=== PATIENT | male | born 1970 | race Caucasian/White ===

== ENCOUNTER 2020-08-26 15:07 | Inpatient (IN) | payer MEDICARE, SELFPAY ==
[2020-08-26] VITALS (9 sets, daily range): BP systolic 113–153; BP diastolic 82–105; PULSE 90–104; RESP 22–26; TEMP 36.2–36.7; O2SAT 88–100; BMI 29.6
--- NOTE | ~2020-08-26 | CT_ITS ---
EXAMINATION: CT diagnostic chest wo con DATE: 08/27/2020 10:02 INDICATION: pneumothorax TECHNIQUE: Computed tomography (CT) of the chest was performed without intravenous contrast. Addition al 3D reconstructions utilizing coronal maximum intensity projection (MIP) were performed. Automated exposure control and iterative reconstruction technique were employed. The dose-length product was 49 8.19 mGy-cm. COMPARISON: None FINDINGS: Right chest tube within the pleural space of the right upper lung zone with tip near the apex. There is a small residual right pneumothorax most prominent at the anterior lung base. There is a large wendi unt of soft tissue gas at the right chest wall extending into the neck and superior mediastinum. Keisha re bullous emphysema in the bilateral upper lobes with negligible emphysema throughout the remainder of the lungs. Consolidation most prominent in the right upper lobe less dense patchy groundglass opac ities and smaller regions of consolidation in the right middle and lower lobes. Mild discoid atelecta sis at the lingula. Small calcified nodules in the left lower lobe consistent with old granulomatous disease. Very small right pleural effusion. Heart size is normal. Very small pericardial effusion. Th oracic aorta is normal in caliber. No pathologically enlarged thoracic lymphadenopathy. Chronic T11-L 1 compression fractures with one third anterior vertebral body height loss at L1 and progressively le ss anterior vertebral body height loss at T12 and T11. IMPRESSION: 1. Small residual right hydropneumothorax with tiny pleural effusion component and with chest tube ti p at the right apex. 2. Emphysema with severe bullous changes at the bilateral apices but otherwise minimal through the re mainder of the lungs. 3. Consolidation in the right upper lobe with less dense airspace disease in the right middle and low er lobes most consistent with pneumonia. Differential includes less likely asymmetric pulmonary edema . 4. Prominent right-sided chest wall gas which extends into the neck and superior mediastinum likely r elated to chest tube placement. Reviewed, dictated and finalized at location A. VITIES DIRECTOR SCOUTING IMPRESSION: 1. Small residual right hydropneumothorax with tiny pleural effusion component and with chest tube tip at the right apex. 2. Emphysema with severe bullous changes at the bilateral apices but otherwise minimal through the remainder of the lungs. 3. Consolidation in the right upper lobe with less dense airspace disease in th e right middle and lower lobes most consistent with pneumonia. Differential inc ludes less likely asymmetric pulmonary edema. 4. Prominent right-sided chest wall gas which extends into the neck and superio r mediastinum likely related to chest tube placement.
--- NOTE | ~2020-08-26 | XR_ITS ---
EXAMINATION: XR chest-chest tube insert/pos DATE: 08/26/2020 17:23 INDICATION: Chest tube placement for right pneumothorax TECHNIQUE: frontal view of the chest was obtained. COMPARISON: Chest radiograph dated 08/26/2020 at 4:07 PM FINDINGS: Interval placement of an apically directed right chest tube with reexpansion of the right lung. Very small residual pneumothorax at the apex and mediastinal side of the right upper lung zone. Prominent bullous changes at the bilateral upper lung zones particularly on the left consistent with severe emp hysema. Linear opacities in the bilateral mid and lower lung zones most likely discoid atelectasis. R ight heart border remains obscured suggesting atelectasis and/or pneumonia in the right middle lobe. No pleural effusion or left-sided pneumothorax. Cardiac mediastinal silhouette is within normal limit s for AP technique with normal heart size and no evident midline shift. Expected right-sided chest wa ll gas related to chest tube placement. IMPRESSION: 1. Improved aeration of the previously collapsed right lung with very small residual pneumothorax in the right upper lung zone post right chest tube placement. 2. Severe upper lung predominant emphysema. 3. Persistent opacities at the medial right lower lung zone with obscuration of the right heart borde r consistent with likely residual atelectasis and/or pneumonia in the right middle lobe. Reviewed, dictated and finalized at location A. ST FIREFIGHTER IMPRESSION: 1. Improved aeration of the previously collapsed right lung with very small res idual pneumothorax in the right upper lung zone post right chest tube placement . 2. Severe upper lung predominant emphysema. 3. Persistent opacities at the medial right lower lung zone with obscuration of the right heart border consistent with likely residual atelectasis and/or pneu monia in the right middle lobe.
--- NOTE | ~2020-08-26 | XR_ITS ---
EXAMINATION: XR chest 1V portable EXAM DATE: 08/26/2020 16:15 INDICATION: Shortness of breath. History high blood pressure and COPD. TECHNIQUE: Frontal and lateral projections of the chest obtained and reviewed. Comparison is made to prior examination from 08/10/2014. FINDINGS: There is large right-sided pneumothorax or hydropneumothorax. There is large left apical b leb which is unchanged compared to 2015. Cardiomediastinal silhouette is normal. The left pleural eff usion. There are no osseous abnormalities identified. IMPRESSION: Large right-sided pneumothorax or hydropneumothorax. I discussed pneumothorax with Dr. Cheng Girard MD at 08/26/2020 16:23 HAIR BOILER OPERATOR. Reviewed, dictated and finalized at location A. BOILER OPERATOR IMPRESSION: Large right-sided pneumothorax or hydropneumothorax. I discussed pneumothorax with Dr. Cheng Girard MD at 08/26/2020 16:23 Zaid.
--- NOTE | ~2020-08-26 | XR_ITS ---
EXAMINATION: XR chest 1V portable INDICATION: Pneumothorax, shortness of breath TECHNIQUE: Portable AP chest at 08/26/2020 COMPARISON: 08/26/2020 FINDINGS: A right-sided chest tube is in expected position. No persistent pneumothorax is identified. A moderate amount of subcutaneous emphysema is present in the right chest wall which tracks into the neck bilaterally. There are airspace opacities in the right midlung zone. Severe emphysema is noted in the left mid and upper lung zones. No pleural effusion is identified. The cardiomediastinal silhou ette is normal. IMPRESSION: 1. Right chest tube in expected position without residual pneumothorax identified. 2. Moderate amount of subcutaneous emphysema in the right chest wall and neck. 3. Airspace opacities in the right midlung zone, likely atelectasis. Reviewed, dictated and finalized at location A. HETIC CLOTH BINDING CUTTER IMPRESSION: 1. Right chest tube in expected position without residual pneumothorax identifi ed. 2. Moderate amount of subcutaneous emphysema in the right chest wall and neck. 3. Airspace opacities in the right midlung zone, likely atelectasis.
--- NOTE | ~2020-08-26 | XR_ITS ---
XR chest 1V portable DATE: 08/27/2020 09:09 INDICATION: Right pneumothorax TECHNIQUE: Portable upright AP chest on August 27, 2020 at 0909 hours COMPARISON: August 27, 2020 portable AP chest at 0538 hours August 26, 2020 portable AP chest August 10, 2014 2 view chest FINDINGS: Right thoracostomy tube is unchanged in position. Slight residual right apical pneumothorax is suggested. There is extensive infiltrate throughout most of the right lung, sparing bullae at the right apex. Severe bullous change of the left upper lung. There is extensive increased subcutaneous emphysema of the right chest wall, extending into both cerv ical areas. IMPRESSION: Right chest tube Minimal right apical pneumothorax is increased subcutaneous emphysema Diffuse right-sided pulmonary infiltrate Severe bullous emphysema Reviewed, dictated and finalized at location B. CAR UNLOADER
--- NOTE | 2020-08-26 15:09 | ECG_ITS ---
Measurements Intervals [place] Rate: 97 P: 98 WV: 116 QRS: 61 QRSD: 96 T: 60 QT: 326 QTc: 415 Interpretive Statements SINUS RHYTHM WITH SHORT [place] INTERVAL BASELINE WANDER- II, III, AVR, AVL, AVF, V1-V6 BORDERLINE ECG Electronically Signed On 08-26-2020 15:40:11 CLIENT TECHNICAL PROFESSIONAL by Stas Adams D.O.
[2020-08-26 15:30] LABS: Basophils Percent Auto 0.4 % (0.2-1.2); Eosinophils Absolute Auto 0.2 K/mm3 (0-0.3); Eosinophils Percent Auto 1.8 % (0-4.4); Hematocrit 49.6 % (42.0-52.0); Hemoglobin 16.1 g/dL (14.0-18.0); Immature Granulocyte Absolute 0.01 K/mm3 (0.00-0.031); Immature Granulocyte Percent A 0.1 % (0-0.5); Lymphocytes Absolute Auto 1.56 K/mm3 (0.9-3.2); Mean Corpuscular HGB Conc 32.5 g/dl (32-36); Mean Corpuscular Hemoglobin 31.3 pg (26-34); Mean Corpuscular Volume 96.3 fl (80-100); Mean Platelet Volume 9.5 fl (7.4-10.4); Monocytes Absolute Auto 0.8 K/mm3 (0.1-0.6); Monocytes Percent Auto 9.4 % (2.6-8.5); Neutrophils Absolute Auto 5.7 K/mm3 (1.3-6.7); Neutrophils Percent Auto 69.3 % (45.5-73.1); Platelet Count Result 324 k/mm3 (150-375); Red Blood Count 5.15 M/mm3 (4.6-6.20); Red Cell Distribution Width 13.1 % (11.5-14.5); White Blood Count 8.2 K/mm3 (4.5-10.0)
[2020-08-26 15:41] LABS: Anion Gap 8 mmol/L (8-16); Blood Urea Nitrogen 12 mg/dL (9-20); Calcium 9.1 mg/dL (8.4-10.2); Carbon Dioxide 34 mmol/L (22-30); Chloride 95 mmol/L (98-107); Estimated CRCL calculation 108 ml/min; Estimated Glomerular Filt Rate > 60; Glucose 134 mg/dL (75-110); Potassium 4.3 mmol/L (3.4-5.0); Sodium 137 mmol/L (137-145)
[2020-08-26 15:42] LABS: Lactic Acid Reflex 1.3 mmol/L (0.7-2.1)
[2020-08-26 15:48] LABS: Alveolar/Arterial O2 Gradient 75.6 mmHg; Base Excess ABG 2.6 mEq/l (+/-2.0); Carboxyhemoglobin 1.6 % THb (0-2.0); Fractional Inspired Oxygen 28 %; HCO3 ABG 28.2 mEq/l (22.0-26.0); Methemoglobin ABG 0.2 %THb (0-1.5); Oxygen Content ABG 20.7 %vol (16.0-22.0); Oxygen Saturation ABG 93.7 % (95.0-100.0); Oxyhemoglobin 92.2 % THb (90.0-100.0); PCO2 ABG 46.7 mmHg (35.0-45.0); PO2 ABG 68.9 mmHg (80.0-100.0); PO2 FiO2 Ratio Arterial Blood 2.46 %; pH ABG 7.399 (7.350-7.450)
[2020-08-26 15:49] LABS: Device NASAL CANNULA; Modified Allen's Test Pass; Site Drawn RIGHT RADIAL
[2020-08-26] MEDS: IPRATROPIUM BR 0.02% INH SOLN 0.5 MG/2.5 ML VIAL 1.5 MG INHALATION (15:56)
[2020-08-26] MEDS: ALBUTEROL SULFATE NEB 2.5 MG/0.5 ML INH 15 MG INHALATION (15:56)
--- NOTE | 2020-08-26 16:18 | PC.NURSE ---
Called lab to add on BNP
--- NOTE | 2020-08-26 16:26 | ED.SOB ---
HPI - SOB/Dyspnea General Chief Complaint: Shortness of Breath/Dyspnea Stated Complaint: SOB, I think I have pneumonia Time Seen by Provider: 08/26/20 15:18 History of Present Illness HPI Narrative: Patient is a 49-year-old male who presents the ER with shortness of breath. Report is been ongoing for 1 week. Associate with some mild chest pain a week ago that is not particular bugging him at this time. Reports he becomes increasingly short of breath with any type of exertion. Concerned he may have pneumonia. He has not been having fevers or chills or sweats. No productive cough. O2 sats low upon arrival to ER. Related Data Home Medications Medication Instructions Recorded Confirmed No Home Medications 08/26/20 08/26/20 Allergies Allergy/AdvReac Type Severity Reaction Status Date / Time No Known Allergies Allergy Unknown Unverified 08/03/14 17:18 Review of Systems Review of Systems: All systems reviewed & are unremarkable except as noted in HPI and below Constitutional: Constitutional: Denies chills, Reports fatigue and Denies fever(s) ENT: Denies nasal congestion and Denies sore throat Cardiovascular: Cardiovascular: Reports chest pain, Denies rapid heart rate and Denies radiating jaw, neck or arm pain Respiratory: Respiratory: Denies cough, Reports dyspnea and Denies wheezing Gastrointestinal: Gastrointestinal: Denies abdominal pain, Denies nausea and Denies vomiting PMFSH Past Medical History Medical History (Updated 08/26/20 @ 20:41 by Cheng Girard MD) COPD (chronic obstructive pulmonary disease) Surgical History Surgical History (Updated 08/26/20 @ 17:40 by Cheng Girard MD) H/O brain surgery plates and screws from traumatic injury History of tracheostomy Family History Family History (Updated 08/26/20 @ 20:30 by Unique Whitehead RN) Father Hypertension Sibling Hypertension Grandparent Diabetes mellitus Grandparent Acute myocardial infarction Other Family history of mental disorder Social History Social History Smoking packs per day: 0.5 Smoking cigarettes per day: 10.0 Years smoked: 30 Smoking pack-years: 15.00 Smoking status: Current every day smoker Alcohol intake: current Substance use: current Substance use type: marijuana Last use: 08/21 Gender identity (if verbalized by the patient): Male Spiritual care concerns: No Exam Narrative: Exam Narrative: GENERAL: Uncomfortable-appearing, well-nourished, and in mild distress. HEAD: Normocephalic, atraumatic. ENT: Mucous membranes moist. CHEST: Exceedingly diminished lung sounds throughout with poor air movement and rapid breathing. HEART: Regular rate and rhythm. Normal peripheral pulses. ABDOMEN: Soft, nontender, nondistended. EXTREMITIES: Normal range of motion. No edema. SKIN: Warm, dry, no rash. NEURO: Alert and oriented x3. PSYCH: Normal mood and affect. Course Course Emergency Course: Patient with improved lung sounds on the right after chest tube placement. Admit to general surgery service. Vital Signs Vital signs: Vital Signs Temperature 97.2 F L 08/26/20 15:15 Pulse Rate 95 08/26/20 15:15 Respiratory Rate 25 H 08/26/20 15:15 Blood Pressure 135/105 H 08/26/20 15:15 Pulse Oximetry 88 L 08/26/20 15:15 Temperature 97.2 F L 08/26/20 15:15 Pulse Rate 94 08/26/20 18:32 Respiratory Rate 24 H 08/26/20 18:32 Blood Pressure 125/82 08/26/20 18:32 Pulse Oximetry 96 08/26/20 18:32 Procedures Chest Tube Chest Tube 1: Chest Tube Date: 08/26/20 Chest Tube Time: 17:10 Chest Tube Location: right, mid axillary line and fourth interspace Tube Type: quik thal Chest Tube Prep: Yes betadine prep (cholorhexadine) Anesthetic: lidocaine 1% and with epi Amount of anesthesia used (mL): 10 Incision Made With: #10 blade Procedure: seldinger technique Post Procedure: sutured to skin, steril
[2020-08-26 16:41] LABS: NT Pro B Type Natriuretic Pept 275 PG/ML (5-100)
[2020-08-26] MEDS: MORPHINE SULFATE (*CRX) 4 MG/ML INJ IV PUSH ×3 (17:02→21:24)
--- NOTE | 2020-08-26 17:02 | PC.NURSE ---
EDP at bedside at this time for chest tube placement. 4mg morphine given prior to procedure. Consent obtained.
--- NOTE | 2020-08-26 20:05 | ADMGEN ---
This patient, Skyler Stroud, was admitted to Medical Room 340-01. Patient/family oriented to hospital policies and general routines including ID bracelet, bed and alarms, visiting hours, pain management, procedures, bathroom and other care routines, personal items, smoking policy, room service/diet, and visiting hours. Information on how to activate the Rapid Response Team has been discussed. Patient/Family are encouraged to report perceived risks to care and to ask questions if they do not understand what they are told or what they should do.
--- NOTE | 2020-08-26 20:35 | PC.NURSE ---
Upon pt arrival to room from ED this RN noted chest tube to be clamped. Unclamped chest tube and spoke with charge nurse about this and the ED nurse that patient had been received from. Then called Dr. Petty and received orders to connect chest tube to wall suction at 20 and to repeat chest xray in AM. Will put in orders.
[2020-08-27] VITALS (21 sets, daily range): BP systolic 118–140; BP diastolic 73–92; PULSE 85–110; RESP 18–28; TEMP 36–36.4; O2SAT 90–100
[2020-08-27] MEDS: MORPHINE SULFATE (*CRX) 4 MG/ML INJ IV PUSH ×2 (04:41→13:30)
--- NOTE | 2020-08-27 07:59 | PC.NURSE ---
Patient called nurse's station via call light to notify RN that he was feeling short of breath. RN arrived to assess patient and noted his O2 sats were in the mid 80's. Oxygen increased to 4L NC. VS obtained: patient is tachycardic, O2 sats increased to 92% on 4L, otherwise stable. Patient was kneeling at the bedside; denied any type of fall or unintentional descent. Patient states he has been finding relief of symptoms associated to SOB at home for several weeks by utilizing this position. Patient stated he felt warm and requested a fan. Dr. Petty notified.
--- NOTE | 2020-08-27 09:16 | PM.IMCN ---
Assessment and Plan Assessment and plan (1) Acute respiratory failure: Code(s): J96.00 - Acute respiratory failure, unspecified whether with hypoxia or hypercapnia Status: Acute (2) Pneumothorax: Code(s): J93.9 - Pneumothorax, unspecified Status: Acute (3) Chronic bullous emphysema: Code(s): J43.9 - Emphysema, unspecified Status: Acute (4) COPD (chronic obstructive pulmonary disease): Code(s): J44.9 - Chronic obstructive pulmonary disease, unspecified Status: Acute (5) Traumatic brain injury: Code(s): S06.9X9A - Unspecified intracranial injury with loss of consciousness of unspecified duration, initial encounter Status: Acute (6) Tobacco abuse: Code(s): Z72.0 - Tobacco use Status: Acute (7) DVT prophylaxis: Code(s): Z29.9 - Encounter for prophylactic measures, unspecified Status: Acute Additional Plan Called to the bedside by RN to find the patient in respiratory distress. Stat repeat chest x-ray ordered showing minimal right apical pneumothorax with increased subcutaneous emphysema. He had diffuse right-sided pulmonary infiltrates. General surgery called to the bedside as well. CT of the chest ordered hydropneumothorax and tiny pleural effusion with chest tube at right apex. Consolidation right upper lobe with less dense airspace disease in right middle and lower lobes consistent with pneumonia but consider asymmetric pulmonary edema. Prominent right-sided chest wall gas which extends into the neck and superior mediastinum. Patient remained afebrile. White count was normal on admission. Cough is minimal. He was given 1 dose of IV Lasix with good urine output and improvement in his respiratory status. Patient initially was on non-rebreather mask this morning but was able to be weaned down to a Venturi mask. Patient refused to wear nasal cannula because of nasal congestion. Antibiotics and nebulizer treatments were started. Later, the patient was somnolent after a dose of morphine. ABG ordered due to the somnolence which showed a pH is 7.40, pCO2 of 50 and PO2 76 on Venturi mask. Morphine stopped. Discussed with general surgery who was concerned about the patient's severe bullous emphysema and the fact that they may have difficulty removing the chest tube. They asked for patient to be transferred to a higher level care. Plan for transfer to [facility] when bed available. Thank you for allowing me to be apart of this patient's care. 50 minutes spent on critical care time. HPI Data of Consult Consult date: 08/27/20 Requesting Physician: Courtney Petty MD Primary Care Provider: REGIONAL SALES MANAGER PHYSICIAN Consult Narrative Narrative: Skyler Stroud is a 49 year old male with hx of TBI requiring trach in 2002 here for SOB and found to have pneumothorax. Patient presented emergency room on August 26 complaints of shortness of breath x1 week. He smokes half a pack a day. He is known to have bolus emphysema described as severe from a chest x-ray in 2015 worse in the left upper lobe. In the emergency room, patient was noted to be hypoxic, tachypneic with hypertension. Chest x-ray showed large right-sided pneumothorax or hydro pneumothorax. Chest tube was placed and repeat x-ray showed improved aeration but with opacities in the medial right and lower lung zone atelectasis versus pneumonia. Patient was admitted to the surgery service. Patient was on 3 L overnight and was comfortable. This morning's x-ray showed no residual pneumothorax but with moderate amount of subcutaneous emphysema and the persistent right middle lobe zone airspace opacity likely atelectasis. Patient was switched from suction to water seal. Patient's condition worsened with increasing hypoxia. Consulted this morning due to increasing shortness of breath. Nursing found the patient kneeling at the side of the bed. No falls. Patient states he was kneeling beside
[2020-08-27] MEDS: FUROSEMIDE INJ 40 MG/4 ML VIAL 20 MG IV PUSH (10:10)
[2020-08-27] MEDS: SALINE 0.65% NAS SOLN 44 ML BTL 1 SPRAY NASAL (11:04)
[2020-08-27] MEDS: AZITHROMYCIN 250 MG TABLET 500 MG PO (11:05)
--- NOTE | 2020-08-27 14:54 | PM.IMHP ---
H&P: HPI History of Present Illness Date/Time: 08/27/20 14:54 Chief Complaint: respiratory failure Narrative: Skyler Stroud is a 49 year old male presenting to the emergency department complaining of severe shortness of breath. The patient reports symptoms over the last week and progressively worsening. The patient has a history of bullous emphysema and reports baseline shortness of breath. The patient reports that over the last week it has been much worse than baseline. The patient reports kneeling in the position seems to help him breathe better. The patient was found to have a right-sided pneumothorax and subsequent chest tube was placed in the ED. Review of Systems Constitutional: Constitutional: Denies anorexia, Denies chills, Reports fatigue, Denies fever(s), Reports lethargy, Denies malaise, Denies night sweats, Denies poor appetite and Reports weakness Eyes: Eyes: Reports no additional eye complaints ENT: Reports system reviewed and no additional complaints, except as documented Cardiovascular: Cardiovascular: Reports chest pain, Denies chest pain with activity, Reports dyspnea, Reports dyspnea on exertion and Reports orthopnea Respiratory: Respiratory: Reports as per HPI Gastrointestinal: Gastrointestinal: Reports no additional gastrointestinal complaints Genitourinary: Genitourinary: Reports no additional male genitourinary complaints Musculoskeletal: Musculoskeletal: Reports no additional musculoskeletal complaints Integumentary/Breasts: Skin/Breast: Reports system reviewed and no additional complaints, except as docu Neurologic: Reports system reviewed and no additional complaints, except as documented Psychiatric: Psychiatric: Reports no additional psychiatric complaints Endocrine: Endocrine: Reports no additional endocrine complaints Hematologic/Lymphatic: Hematologic/Lymphatic: Reports no additional hematologic/lymphatic complaints Allergic/Immunologic: Allergic/Immunologic: Reports no additional allergic/immunologic complaints [facility] Past Medical History Medical History Chronic bullous emphysema COPD (chronic obstructive pulmonary disease) PFTs in 2015 showing moderate obstructive disease. Traumatic brain injury In 2003. Brain CT in 2015 showing chronic encephalomalacia involving the left frontal and bilateral temporal lobes Surgical History Surgical History H/O brain surgery plates and screws from traumatic injury History of tracheostomy Family History Family History Father Hypertension Sibling Hypertension Grandparent Diabetes mellitus Grandparent Acute myocardial infarction Other Family history of mental disorder Social History Social History Social History: Patient smokes half pack a day has smoked for 30+ years. Minimal alcohol use. He admits to marijuana use but no other drug use. 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 He nominates his mother to be the individual would make medical decisions for him if he is not able. Smoking packs per day: 0.5 Smoking cigarettes per day: 10.0 Years smoked: 30 Smoking pack-years: 15.00 Smoking status: Current every day smoker Alcohol intake: current Substance use: current Substance use type: marijuana Last use: 08/21 Gender identity (if verbalized by the patient): Male Spiritual care concerns: No Meds Home Medications and Allergies Home Medications Medication Instructions Recorded Confirmed Type No Home Medications 08/26/20 08/26/20 History Allergies Allergy/AdvReac Type Severity Reaction Status Date / Time No Known Allergies Allergy Unknown Unverified 08/03/14 17:18 Vital Signs Vital Signs - 24 hr 08/26/20 15:15 08/26/20 15:18 08/26/20 15:56 Temperature 36.2 C L Pulse Rate 95 95
[2020-08-27] MEDS: ALBUTEROL SULFATE NEB 2.5 MG/0.5 ML INH INHALATION ×2 (15:01→20:08)
[2020-08-27] MEDS: IPRATROPIUM BR 0.02% INH SOLN 0.5 MG/2.5 ML VIAL INHALATION ×2 (15:01→20:08)
[2020-08-27 16:38] LABS: Alveolar/Arterial O2 Gradient 151.2 mmHg; Base Excess ABG 4.4 mEq/l (+/-2.0); Device VENTURI MASK; Fractional Inspired Oxygen 40 %; HCO3 ABG 30.5 mEq/l (22.0-26.0); Modified Allen's Test Pass; Oxygen Content ABG 22.1 %vol (16.0-22.0); Oxygen Saturation ABG 95.1 % (95.0-100.0); PCO2 ABG 50.3 mmHg (35.0-45.0); PO2 ABG 76.2 mmHg (80.0-100.0); Site Drawn RIGHT RADIAL; Total Hemoglobin 16.7 g/dL (12.0-18.0); pH ABG 7.401 (7.350-7.450)
[2020-08-28] VITALS: PULSE 86
[2020-08-28 00:43] VITALS: TEMP 36.8
[2020-08-28 02:31] VITALS: PULSE 86; RESP 20
[2020-08-28] MEDS: IPRATROPIUM BR 0.02% INH SOLN 0.5 MG/2.5 ML VIAL INHALATION (02:31)
[2020-08-28] MEDS: HYDROcodone/acetaminophen (*CRX) 5-325 MG TABLET 1 TAB PO (02:31)
[2020-08-28] MEDS: ALBUTEROL SULFATE NEB 2.5 MG/0.5 ML INH INHALATION (02:31)
[2020-08-28 02:42] VITALS: PULSE 87; RESP 20
--- NOTE | 2020-09-13 12:38 | PM.TDS ---
Transfer Discharge Sum: Prov Provider Date of admission: 08/26/20 17:32 Primary care physician: QUALITY ASSURANCE REPRESENTATIVE PHYSICIAN Admitting clinician: Courtney Petty MD Consults: 08/27/20 Consult to Physician Routine Comment: Odalis Alanis notified at 0828 and will notify Consulting Provider: Mason Kim Reason for consultation: medical management Has provider been notified: Yes Anticipated date of transfer: 08/27/20 DS: Admitting Diagnosis Admitting Diagnosis Admitting Diagnosis: right pneumothorax DS: Discharge Diagnosis Discharge Diagnosis (1) Acute respiratory failure: Code(s): J96.00 - Acute respiratory failure, unspecified whether with hypoxia or hypercapnia Status: Acute Assessment and Plan: worsening saturations despite chest tube and minimal residual PTX, will transfer to thoracic surgery service (2) Chronic bullous emphysema: Code(s): J43.9 - Emphysema, unspecified Status: Acute Assessment and Plan: see above (3) Pneumothorax: Code(s): J93.9 - Pneumothorax, unspecified Status: Acute Assessment and Plan: s/p CT c minimal residual PTX (4) Tobacco abuse: Code(s): Z72.0 - Tobacco use Status: Acute Assessment and Plan: discussed importance of cessation Transfer Discharge Sum: Med Medications Active and Home Medications: Home Medications No Home Medications 08/26/20 [History Confirmed 08/26/20] Transfer Discharge Sum: Hosp Hospital Course Hospital course: Skyler Stroud is a 49 year old male presenting c worsening SOB over last week. Pt has baseline SOB and severe bullous emphysema. Workup in ED including imaging significant for R PTX. Pt had CT placed and PTX was noted to be largely resolved. Pt admitted to surgery service. Overnight, pt c worsening saturations and cont SOB. Upon eval, CT was noted in good position and CXR c just minimal residual PTX. At this point, decision made to transfer pt to thoracic surgery service. Time Spent with Patient Time attestation: Total time spent providing and/or coordinating transfer services:1 hour Exam Const: General: alert, awake, anxious and ill appearing Orientation/consciousness: patient oriented x3 Resp: Effort & Inspection: labored and respiratory distress Auscultation: wheezes and diminished lung sounds Cardio: Rate: regular rate Rhythm: regular rhythm
== END 2020-08-28 04:05 | disposition short-term general hospital (02) | DRG 199 ==
LOC: ANHED 17:05 → ANH3MED 20:35
PROVIDERS: Admitting Provider Surgery; Emergency Provider Emergency Medicine; Visit Provider Internal Medicine
DX: J93.9 Pneumothorax, unspecified (principal); J96.00 Acute respiratory failure, unspecified whether with hypoxia or hypercapnia; J18.9 Pneumonia, unspecified organism; J98.11 Atelectasis; J43.9 Emphysema, unspecified; F17.210 Nicotine dependence, cigarettes, uncomplicated; Z87.820 Personal history of traumatic brain injury; Z86.73 Personal history of transient ischemic attack (TIA), and cerebral infarction without residual deficits; I10 Essential (primary) hypertension
CPT/HCPCS: 36415; 36600; 71045; 71250; 80048; 82375; 82805; 83050; 83605; 83880; 85025; 87040; 93005; 94640; 96374; 99291; A9270; J0696; J1940; J2270

== ENCOUNTER 2023-10-04 21:44 | Emergency (ER) | payer OTHER, MEDICARE, MEDICAID, SELFPAY ==
[2023-10-04] VITALS (16 sets, daily range): BP systolic 145–158; BP diastolic 92–99; PULSE 72–79; RESP 12–17; TEMP 37.2; O2SAT 92–100
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
--- NOTE | ~2023-10-04 | CT_ITS ---
EXAMINATION: CT facial & cervical spine wo DATE: 10/04/2023 22:29 INDICATION: Trauma TECHNIQUE: Computed tomography (CT) of the maxillofacial region and cervical spine was performed with out intravenous contrast. Automated exposure control and iterative reconstruction technique were empl oyed. The dose-length product was 507.65 mGy-cm. COMPARISON: CT chest 08/27/2020 FINDINGS: CERVICAL: Vertebral Body Alignment: Intact. Craniocervical and atlantoaxial alignment: Moderate degenerative change. Alignment intact. Osseous structures/fracture: No evidence of a lytic or blastic process in the visualized spine. No e vidence of acute fracture. Cervical soft tissues: The paraspinal soft tissues planes are maintained. Right apical scarring and p leural calcification. Large left apical bulla. Degenerative changes: Degenerative changes, without severe neural foraminal or central canal narrowin g. FACE: Soft Tissues: Left frontal soft tissue contusion and laceration. Soft tissues tissue swelling over t he nose. Large laceration of the upper lip. Soft tissue swelling of the lips and left periorbital sof t tissues. Multifocal hyperdensities in the soft tissues of the lips. Facial bones: Fractures of the left zygomatic arch, left lateral orbital wall and left anterior and lateral maxillary anne. Comminuted and mildly depressed nasal bone fractures. Mildly displaced fract ures of the anterior osseous septum. Fracture of the maxillary spine. No septal hematoma detected. No lytic or blastic process. Eyes: The globes are intact. The soft tissue planes of the orbits are maintained. Paranasal Sinuses: Mucosal thickening in the bilateral maxillary and ethmoid sinuses. The remaining aerated spaces are clear. Foreign Bodies: No radiopaque foreign bodies. Other Findings: Periodontal disease. IMPRESSION: No acute fracture or traumatic malalignment in the cervical spine. Comminuted depressed nasal bone fracture, with fractures of the anterior osseous septum and maxillary spine. No significant septal hematoma. Fractures of the left zygomatic arch, left lateral orbital wall, and left anterior and lateral maxill kee anne (ZMC fracture pattern). Multiple hyperdensities projecting over the soft tissues of the lips may represent soft tissue and in traoral foreign bodies. Reviewed, dictated and finalized at location K. IMPRESSION: No acute fracture or traumatic malalignment in the cervical spine. Comminuted depressed nasal bone fracture, with fractures of the anterior osseou s septum and maxillary spine. No significant septal hematoma. Fractures of the left zygomatic arch, left lateral orbital wall, and left anter ior and lateral maxillary anne (ZMC fracture pattern). Multiple hyperdensities projecting over the soft tissues of the lips may repres ent soft tissue and intraoral foreign bodies.
[2023-10-04 22:13] LABS: Basophils Percent Auto 0.3 % (0.2-1.2); Eosinophils Absolute Auto 0.1 K/mm3 (0-0.3); Eosinophils Percent Auto 1.7 % (0-4.4); Hematocrit 46.9 % (42.0-52.0); Hemoglobin 15.3 g/dL (14.0-18.0); Immature Granulocyte Absolute 0.01 K/mm3 (0.00-0.031); Immature Granulocyte Percent A 0.2 % (0-0.5); Lymphocytes Absolute Auto 2.05 K/mm3 (0.9-3.2); Lymphocytes Percent Auto 31.3 % (18.3-44.2); Mean Corpuscular HGB Conc 32.6 g/dl (32-36); Mean Corpuscular Volume 94.9 fl (80-100); Mean Platelet Volume 9.5 fl (7.4-10.4); Monocytes Absolute Auto 0.9 K/mm3 (0.1-0.6); Monocytes Percent Auto 13.1 % (2.6-8.5); Neutrophils Absolute Auto 3.5 K/mm3 (1.3-6.7); Neutrophils Percent Auto 53.4 % (45.5-73.1); Platelet Count Result 237 k/mm3 (150-375); Red Blood Count 4.94 M/mm3 (4.6-6.20); Red Cell Distribution Width 13.2 % (11.5-14.5); White Blood Count 6.5 K/mm3 (4.5-10.0)
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
[2023-10-04 22:20] LABS: Alanine Aminotransferase 27 U/L (6-50); Albumin Level 3.9 g/dL (3.5-5.1); Alkaline Phosphatase 96 U/L (38-126); Anion Gap 5 mmol/L (4-12); Aspartate Amino Transferase 41 U/L (17-59); Bilirubin,Total 0.6 mg/dL (0.2-1.3); Blood Urea Nitrogen 19 mg/dL (9-20); Carbon Dioxide 24 mmol/L (22-30); Chloride 108 mmol/L (98-107); Estimated CRCL calculation 96 ml/min; Estimated Glomerular Filt Rate > 60; Glucose 106 mg/dL (65-110); Potassium 3.9 mmol/L (3.4-5.0); Sodium 137 mmol/L (137-145)
[2023-10-04] MEDS: MORPHINE SULFATE (*CRX) 4 MG/ML INJ IV PUSH (22:20)
[2023-10-04] MEDS: ONDANSETRON INJ 4 MG/2 ML VIAL IV PUSH (22:37)
[2023-10-04] MEDS: HYDROmorphone HCL INJ (*CRX) 1 MG/ML SYR IV PUSH (22:38)
[2023-10-04] MEDS: AMPICILLIN SULB 3 GM/NS 100 ML 3 GM/100 ML VIAL IVPB (23:33)
[2023-10-05] MEDS: MORPHINE SULFATE (*CRX) 4 MG/ML INJ IV PUSH (00:02)
== END 2023-10-05 00:27 | disposition short-term general hospital (02) ==
PROVIDERS: Emergency Provider Emergency Medicine
DX: S02.2XXB Fracture of nasal bones, initial encounter for open fracture (principal); S02.42XB Fracture of alveolus of maxilla, initial encounter for open fracture; S02.40FA Zygomatic fracture, left side, initial encounter for closed fracture; S02.842A Fracture of lateral orbital wall, left side, initial encounter for closed fracture; S01.81XA Laceration without foreign body of other part of head, initial encounter; S01.511A Laceration without foreign body of lip, initial encounter; J43.9 Emphysema, unspecified; J44.9 Chronic obstructive pulmonary disease, unspecified; Z86.73 Personal history of transient ischemic attack (TIA), and cerebral infarction without residual deficits; Z87.820 Personal history of traumatic brain injury; F17.210 Nicotine dependence, cigarettes, uncomplicated; V28.41XA Electric (assisted) bicycle driver injured in noncollision transport accident in traffic accident, initial encounter
CPT/HCPCS: 36415; 70450; 70486; 72125; 80053; 85025; 96365; 96375; 96376; 99285; J0295; J1170; J2270; J2405

== ENCOUNTER 2025-01-31 00:11 | Emergency (ER) | payer MEDICARE, OTHER, MEDICAID, SELFPAY ==
[2025-01-31] VITALS (7 sets, daily range): BP systolic 145–162; BP diastolic 74–101; PULSE 71–106; RESP 15–20; TEMP 36.6–37; O2SAT 96–100
--- NOTE | ~2025-01-31 | CT_ITS ---
CLINICAL INDICATION: Abdominal pain, nausea and hernia COMPARISON: . TECHNIQUE: Multiple contiguous axial images of the abdomen and pelvis were performed following the ad ministration of with 100 mL Omnipaque-350 intravenous contrast The dose-length product (DLP) was 529.64 mGy-cm. Automated exposure control and iterative reconstruction technique were employed. FINDINGS/OBSERVATIONS: Visualized lower thorax: Elevation of the right hemidiaphragm with adjacent compressive atelectasis. Subpleural bleb disease is also noted, left greater than right. The heart is of normal size, without pericardial effusion. Mural thickening of the distal esophagus extending into the proximal stomach with a small hiatal rosemary ia. Liver: The liver demonstrates homogeneous enhancement and is not enlarged. Gallbladder and biliary system: The gallbladder is only minimally distended, and otherwise unremarkable. Pancreas: The pancreas enhances homogeneously without ductal dilatation. Spleen: The spleen enhances homogeneously and is not enlarged. Kidneys: 7 mm nonobstructing stone within the lower pole of the right kidney. 4 mm nonobstructing stone within the interpolar region of the right kidney Scattered 2 and 3 mm nonobstructing calculi within the left kidney. The remainder of the bilateral kidneys otherwise enhance symmetrically without hydronephrosis or emil l calculi. Adrenal glands: Unremarkable. Gastrointestinal tract: Colonic diverticulosis without surrounding inflammatory change. Fecal stasis within the colon. Appendix: The air-filled appendix is of normal caliber (axial series, images 102 through 112) Vasculature: Unremarkable. Lymph nodes: No pathologically enlarged or morphologically suspicious lymph nodes within the retroperitoneum or at the root of the mesentery. Pelvic structures: The bladder is only minimally distended, and otherwise unremarkable. The prostate gland is not enlarged. Body wall and musculoskeletal: Large right and small left-sided fat-containing inguinal hernias. Levoscoliotic curvature of the lower lumbar spine is identified with age advanced degenerative diseas e and anterior wedge compression of the inferior endplate of the vertebral body of L1. IMPRESSION: Mural thickening of the distal esophagus extending into the proximal stomach with a small hiatal rosemary ia. Nonobstructing bilateral renal calculi. Reviewed, dictated and finalized at location A. IMPRESSION: Mural thickening of the distal esophagus extending into the proximal stomach wi th a small hiatal hernia. Nonobstructing bilateral renal calculi.
--- OUTSIDE RECORDS SUMMARY | 2025-01-31 00:13 | XMS_ITS | Clinical Summary ---
Author Organization [facility] Address [address] [address] Phone Care Team Providers Care Editing Intern Name Role Phone Provider, None Primary Care Provider Unavailabl e Allergies No known active allergies Medications albuterol (PROAIR HFA) 108 (90 Base) MCG/ACT Aerosol Solution take 2 Puffs by inhalation 4 times daily. 8.5 g 4 8 Active Fluticasone-Salm eterol (ADVAIR HFA) 115-21 MCG/ACT AerosolIndicatio ns:Chronic bronchitis, unspecified chronic bronchitis type (HCC) take 2 Puffs by inhalation every 12 hours. 1 Inhaler 1 8 Active ipratropium (ATROVENT HFA) 17 MCG/ACT Aerosol SolutionIndicati ons:Chronic bronchitis, unspecified chronic bronchitis type (HCC) take 2 Puffs by inhalation every 6 hours. 12.9 g 4 8 Active omeprazole (PRILOSEC) 20 MG CAPSULE DELAYED RELEASEIndicatio ns:Heartburn Take 1 Cap by mouth daily. 90 Cap 3 8 Active ALPRAZolam (XANAX) 0.5 MG TabletIndication s:PTSD (post-traumatic stress disorder),Anxiet y Take 1 Tab by mouth 3 times daily as needed for Anxiety. 30 Tab 8 Active oxyCODONE-acetam inophen (PERCOCET) 5-325 MG TabletIndication s:Intractable chronic post-traumatic headache Take 1 Tab by mouth every 8 hours as needed for Moderate or more severe pain or Severe pain. No more 60 tabs per month. 30 Tab 8 Active Active Problems Problem Noted Date Diagnosed Date Seizures 12/14/2016 Chronic bronchitis 11/30/2016 Chronic pain syndrome 11/30/2016 PTSD (post-traumatic stress disorder) 11/30/2016 TBI (traumatic brain injury) 11/30/2016 Hepatitis C Overview (06/07/2015): Genotype 1A GERD (gastroesophageal reflux disease) Immunizations Immunization Administration Dates Next Due Influenza Vaccine,unspecified Formulation 2016 Influenza, Injectable, Quadrivalent 04/30/2015 Pneumococcal Vaccine - 13 Valent 04/30/2015 TDAP Vaccine 12/21/2015 Social History Tobacco Use Types Packs/Day Years Used Date Smoking Tobacco: Every Day Smokeless Tobacco: Never Tobacco Cessation:Ready to Q uit: No; Counseling Given: Yes Alcohol Use Standard Drinks/Week Comments No 0 (1 standard drink = 0.6 oz pur e alcohol) Sex and Gender Information Value Date Recorded Sex Assigned at Not on file Legal Sex Male 2:08 PM [employer] Gender Identity Not on file Sexual Orientation Not on file Last Filed Vital Signs Vital Sign Reading Time Taken Comments Blood Pressure 130/80 02/28/2018 2:12 PM CDT Pulse 87 02/28/2018 2:12 PM CDT Temperature 36.2 C (97.2 F) 02/28/2018 2:12 PM CDT Respiratory Rate 20 02/28/2018 2:12 PM CDT Oxygen Saturation 99% 02/28/2018 2:12 PM CDT Inhaled Oxygen Concentration - - Weight 88.6 kg (195 lb 4.8 oz) 02/28/2018 2:12 P M CDT Height 180.3 cm (5' 11) 02/28/2018 2:12 PM CDT Body Mass Index 27.24 02/28/2018 2:12 PM CDT Plan of Treatment Health Maintenance Due Date Last Done Comments Hepatitis B Immunization (1 of 3 - 19+ 3-dose series) 1988 Cologuard 2014 Colonoscopy 2014 Colorectal Cancer Screening 2014 Immunochemical Fecal Occult Blood 2014 Pneumococcal Immunization (5 0+ years) (2 of 2 - PPSV23) 06/25/2015 04/30/2015 Zoster Immunization (1 of 2) 10/03/2019 SARS-COV-2 Immunization (2 - season) 2024 03/03/2021 Influenza Immunization (#1) 03/09/2025/07/2016, 04/30/2015 Td Immunization Every 10 Yea rs (Adults With 1 Tdap) 12/20/2025 12/21/2015 Respiratory Syncytial Virus (RSV) Immunization (Adult) (1 - 1-dose 75+ series) 2044 Pneumococcal Immunization Combined Discontinued 04/30/2015 Human Papillomavirus (HPV) Immunization Aged Out No longer eligible based on patient's age to complete this topic Meningococcal Immunization (ACWY) Aged Out No longer eligible based on patient's age to complete this topic Rotavirus Immunization Aged Out No lo nger eligible based on patient's age to complete this topic Insurance MEDICARE [place]ICAID [place] Care Teams Editing Intern Relationship Specialty Start Date End Date Provider, None [place] PCP - General 12/23/20
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
--- OUTSIDE RECORDS SUMMARY | 2025-01-31 00:13 | XMS_ITS | Continuity of Care Document ---
Author Organization [facility] Address [address] [facility] [address] [place] [address] Phone Care Team Providers Care Manager Water Name Role Phone Norberto Naranjo MD Unavailable Unavailable Allergies, Adverse Reactions, Alerts Substance Reaction Status Criticality No Known Allergies Active No Inform ation Medications Medication Instructions Dosage Effective Dates (start - stop) Status Comments Percocet 10 mg-325 mg tablet take 1 tablet by oral route every 4 hours as needed 1 tablet - Active PRN for pain, avoid driving or operate machines, max 5/24 hours Atrovent HFA 17 mcg/actuation aerosol inhaler inhale 2 puff by inhalation route 4 times every day 34 MCG - Active Symbicort 160 mcg-4.5 mcg/actuation HFA aerosol inhaler inhale 2 puff by inhalation route 2 times every day in the morning and evening 2.00 puff - Active Viagra 50 mg tablet take 1 tablet by oral route every day as directe as needed 50 MG - Active take one 30 mins before activity, max 1/24 hours omeprazole 20 mg capsule,delayed release take 1 capsule by oral route every day before a meal 20 MG - Active Procedures Procedure Date OFFICE/OUTPATIENT VISIT, EST OFFICE/OUTPATIENT VISIT, EST OFFICE/OUTPATIENT VISIT, EST OFFICE/OUTPATIENT VISIT, EST OFFICE/OUTPATIENT VISIT, EST OFFICE/OUTPATIENT VISIT, EST OFFICE/OUTPATIENT VISIT, EST OFFICE/OUTPATIENT VISIT, EST OFFICE/OUTPATIENT VISIT, EST OFFICE/OUTPATIENT VISIT, EST OFFICE/OUTPATIENT VISIT, EST OFFICE/OUTPATIENT VISIT, EST OFFICE/OUTPATIENT VISIT, EST OFFICE/OUTPATIENT VISIT, EST OFFICE/OUTPATIENT VISIT, EST OFFICE/OUTPATIENT VISIT, EST OFFICE/OUTPATIENT VISIT, EST OFFICE/OUTPATIENT VISIT, EST OFFICE/OUTPATIENT VISIT, EST OFFICE/OUTPATIENT VISIT, EST OFFICE/OUTPATIENT VISIT, EST OFFICE/OUTPATIENT VISIT, EST OFFICE/OUTPATIENT VISIT, EST OFFICE/OUTPATIENT VISIT, EST OFFICE/OUTPATIENT VISIT, EST OFFICE/OUTPATIENT VISIT, EST OFFICE/OUTPATIENT VISIT, EST OFFICE/OUTPATIENT VISIT, EST OFFICE/OUTPATIENT VISIT, EST OFFICE/OUTPATIENT VISIT, EST OFFICE/OUTPATIENT VISIT, EST OFFICE/OUTPATIENT VISIT, EST OFFICE/OUTPATIENT VISIT, EST OFFICE/OUTPATIENT VISIT, EST OFFICE/OUTPATIENT VISIT, EST OFFICE/OUTPATIENT VISIT, EST OFFICE/OUTPATIENT VISIT, EST OFFICE/OUTPATIENT VISIT, EST OFFICE/OUTPATIENT VISIT, EST OFFICE/OUTPATIENT VISIT, EST OFFICE/OUTPATIENT VISIT, EST OFFICE/OUTPATIENT VISIT, EST OFFICE/OUTPATIENT VISIT, EST OFFICE/OUTPATIENT VISIT, EST OFFICE/OUTPATIENT VISIT, EST OFFICE/OUTPATIENT VISIT, NEW Advance Directives Directive Yes / No Effective Date File Name No Information Encounters Encounter Description Practice Location Reason(s) For Visit Diagnoses Date Provider Providers Copied on Encounter OFFICE/OUTPA TIENT VISIT, EST [facility], [address] [place] [address], [id number], [place] tel:[phone] [facility] headache1 (chief complaint)a nxiety1 (chief complaint)a lcohol1 (chief complaint) HeadacheAnxiolytic dependenceAlcohol dependence, uncomplicated 6 Jose A Thornton. [address] [facility] [address], [place], [place], [address] , . tel:[phone] Referring Provider: Sy Stanton [facility] [address], [place], [place], [address]. tel:[phone] OFFICE/OUTPA TIENT VISIT, [facility], [address] [place] [address], [place] tel:[phone] [facility] headache1 (chief complaint)a nxiety1 (chief complaint)C OPD1 (chief complaint) COPDHeadacheAnxiol ytic dependence 6 Jose A Nash [address], [place], [place], [address] , [place]. tel:[phone] Referring Provider: Sy Stanton [place], [address]. tel:[phone] OFFICE/OUTPA TIENT VISIT, [facility], [address], [address], [place] tel:[phone] [facility] headache1 (chief complaint)a nxiety1 (chief complaint)l eg pain1 (chief complaint)E D (chief complaint) HeadacheVaricose veins of right lower extremities with painAnxiolytic dependenceOther male erectile dysfunction 6 Jose A Thornton. [address] [facility] [place] [address] , [place]. tel:[phone] Referring Provider: Sy Stanton [facility] [place], [address]. tel:[phone] OFFICE/OUTPA TIENT VISIT, [facility], [address], [address], [place] tel:[phone] [facility] headache1 (chief complaint)a nxiety1 (chief complaint)C OPD1 (chief complaint)G ERD1 (chief complaint) GERD w/ esophagitisCOPDHea dacheAnxiolytic dependence 6 Jose A Nash [address], [place], [place], [address] , [place]. tel:[phone] Referring Provider: yS Stanton [address], [place], [place], [address]. tel:[phone] OFFICE/OUTPA TIENT VISIT, [facility], [address], [place], [place], [address], [place] tel:[phone] [facility] GERD1 (chief complaint)h eadache (chief complaint)a nxiety1 (chief complaint)H TN (chief complaint)E D (chief complaint) Wilcox's esophagus without dysplasiaHeadacheA nxiolytic dependenceEssentia l (primary) hypertension 6 Jose A Nash [address], [place], [place], [address] , [place]. [phone] Referring Provider: Sy Stanton [address], [place], [place], [address]. tel:[phone] OFFICE/OUTPA TIENT VISIT, [facility], [address], [place], [place], [address], [place] tel:[phone] [facility] headache1 (chief complaint)a nxiety1 (chief complaint)G ERD1 (chief complaint) HeadacheAnxiolytic dependenceGERD w/o esophagitis 6 Jose A Nash [address], [place], [place], [address] , [place]. tel:[phone] Referring Provider: Sy Stanton [address], [place], [place], [address]. tel:[phone] OFFICE/OUTPA TIENT VISIT, [facility], [address], [place], [place], [address], [place] tel:[phone] [facility] GERD1 (chief complaint)A nxiety1 (chief complaint)h eadache (chief complaint)C OPD (chief complaint) HeadacheAnxiolytic dependenceGERD w/o esophagitisCOPD 6 Naranjo Norberto. [address], [place], [place], [address] , [place]. tel:[phone] Referring Provider: Sy Stanton [address], [place], [place], [address]. tel:[phone] OFFICE/OUTPA TIENT VISIT, [facility], [address], [place], [place], [address], [place] tel:[phone] [facility] GERD1 (chief complaint)h eadache1 (chief complaint)A nxiety1 (chief complaint)t obacco (chief complaint)E D (chief complaint) GERD w/o esophagitisAnxioly tic dependenceHeadache Male erectile dysfunction, unspecified 6 Jose A Thornton. [address], [place], [place], [address] , [place]. tel:[phone] Referring Provider: Sy Stanton [address], [place], [place], [address]. tel:[phone] OFFICE/OUTPA TIENT VISIT, [facility], [address], [place], [place], [address], [place] tel:[phone] [facility] headache1 (chief complaint)a nxiety1 (chief complaint)G ERD1 (chief complaint)C OPD (chief complaint) GERD without esophagitisHeadach eAnxiolytic dependenceOther emphysema 6 Jose A Thornton. [address], [place], [place], [address] , [place]. tel:[phone] Referring Provider: Sy Stanton [address], [place], [place], [address]. tel:[phone] OFFICE/OUTPA TIENT VISIT, [facility], [address], [place], [place], [address], [place] tel:[phone] [facility] COPD1 (chief complaint)h eadache1 (chief complaint)A nxiety1 (chief complaint)H ep C1 (chief complaint)M CV1 (chief complaint) Acute hepatitis C without hepatic comaOther emphysemaChronic pain syndromeAnxiolytic dependence 5 Jose A Thornton. [address], [place], [place], [address] , [place]. tel:[phone] Referring Provider: Sy Stanton [address], [place], [place], [address]. tel:[phone] OFFICE/OUTPA TIENT VISIT, [facility], [address], [place], [place], [address], [place] tel:[phone] [facility] headadche (chief complaint)a nxiety1 (chief complaint) Essential (primary) hypertensionHeadac he 5 Jose A Thornton. [address], [place], [place], [address] , [place]. tel:[phone] Referring Provider: Sy Stanton [facility] [address], [place], [place], [address]. tel:[phone] OFFICE/OUTPA TIENT VISIT, [facility], [address], [place], [place], [address], [place] tel:[phone] [facility] Anxiety1 (chief complaint)h eadache1 (chief complaint)t obacco1 (chief complaint)H TN (chief complaint)E D (chief complaint) Essential (primary) hypertensionChroni c viral hepatitis COther male erectile dysfunctionPost-tr aumatic headache, unspecified, intractable 5 Jose A Thornton. [address], [place], [place], [address] , [place]. tel:[phone] Referring Provider: Sy Stanton [address], [place], [place], [address]. tel:[phone] OFFICE/OUTPA TIENT VISIT, [facility], [address], [place], [place], [address], [place] tel:[phone] [facility] Headahe (chief complaint)C OPD (chief complaint)H ep C (chief complaint)A nxiety (chief complaint) Chronic airway obstruction, not elsewhere classifiedHeadache Acute hepatitis C without mention of hepatic comaUnspecified essential hypertension 5 Jose A Thornton. [address], [place], [place], [address] , [place]. tel:[phone] Referring Provider: Sy Stanton [address], [place], [place], [address]. tel:[phone] OFFICE/OUTPA TIENT VISIT, [facility], [address], [place], [place], [address], [place] tel:[phone] [facility] headache (chief complaint)a nxiety (chief complaint)H ep C (chief complaint)C OPD (chief complaint) HeadacheCOPDAcute hepatitis C without mention of hepatic coma 5 Jose A Thornton. [address], [place], [place], [address] , [place]. tel:[phone] Referring Provider: Sy Stanton [address], [place], [place], [address]. tel:[phone] OFFICE/OUTPA TIENT VISIT, [facility], [address], [place], [place], [address], [place] tel:[phone] [facility] COPD (chief complaint)h eadache (chief complaint)A nxiety (chief complaint)e lbow pain (chief complaint) HeadacheOther and unspecified hyperlipidemiaChro gris airway obstruction, not elsewhere classifiedElbow pain 5 Jose A Thornton. [address], [place], [place], [address] , [place]. tel:[phone] Referring Provider: Sy Stanton [address], [place], [place], [address]. tel:[phone] OFFICE/OUTPA TIENT VISIT, [facility], [address], [place], [place], [address], [place] tel:[phone] [facility] COPD (chief complaint)A nxiety (chief complaint)h eadache (chief complaint)E D (chief complaint) Chronic airway obstruction, not elsewhere classifiedHeadache Acute hepatitis C without mention of hepatic comaErectile dysfunction 2 5 Jose A Nash [address], [place], [place], [address] , [place]. tel:[phone] Referring Provider: Sy Stanton [address], [place], [place], [address]. tel:[phone] OFFICE/OUTPA TIENT VISIT, [facility], [address], [place], [place], [address], [place] tel:[phone] [facility] COPD (chief complaint)C OPD (chief complaint)A nxiety (chief complaint)h eadache (chief complaint)a llergy (chief complaint)a llergy (chief complaint) Chronic airway obstruction, not elsewhere classifiedAllergic rhinitis, cause unspecifiedHeadach e 5 5 Jose A Nash [address], [place], [place], [address] , [place]. tel:[phone] Referring Provider: Sy Stanton [address], [place], [place], [address]. tel:[phone] OFFICE/OUTPA TIENT VISIT, [facility], [address], [place], [place], [address], [place] tel:[phone] [facility] headache (chief complaint)a nxiety (chief complaint)C OPD (chief complaint)E D (chief complaint) HeadacheCOPDErecti le Dysfunction 5 Jose A Nash [address], [place], [place], [address] , [place]. tel:[phone] Referring Provider: Sy Stanton [address], [place], [place], [address]. tel:[phone] OFFICE/OUTPA TIENT VISIT, [facility], [address], [place], [place], [address], [place] tel:[phone] [facility] GERD (chief complaint)C OPD (chief complaint)A nxiety (chief complaint) Dietary surveillance and counselingCOPDGERD HeadacheHypertensi on, Unspecified 0-201 5 Naranjo Norberto. [address], [place], [place], [address] , [place]. tel:[phone] Referring Provider: Sy Stanton [address], [place], [place], [address]. tel:[phone] OFFICE/OUTPA TIENT VISIT, [facility], [address], [place], [place], [address], [place] tel:[phone] [facility] headache (chief complaint)a nxiety (chief complaint)C OPD (chief complaint)E D (chief complaint) Dietary surveillance and counselingCOPDHead acheSedative, hypnotic or anxiolytic dependence, unspecifiedErectil e Dysfunction 5 Jose A Thornton. [address], [place], [place], [address] , [place]. tel:[phone] Referring Provider: Sy Stanton [address], [place], [place], [address]. tel:[phone] OFFICE/OUTPA TIENT VISIT, [facility], [address], [place], [place], [address], [place] tel:[phone] [facility] epilepsy (chief complaint)H eadache (chief complaint)C OPD (chief complaint) Dietary surveillance and counselingEpilepsy , unspecified, without mention of intractable epilepsyHeadacheCO PDOpioid type dependence, unspecified use 5 Jose A Thornton. [address], [place], [place], [address] , [place]. tel:[phone] Referring Provider: Sy Stanton [address], [place], [place], [address]. tel:[phone] OFFICE/OUTPA TIENT VISIT, [facility], [address], [place], [place], [address], [place] tel:[phone] [facility] headache (chief complaint)H ep C (chief complaint)A nxiety (chief complaint)S OB (chief complaint)E D (chief complaint) Dietary surveillance and counselingHeadache Respiratory abnormality, unspecifiedErectil e DysfunctionOther chronic hepatitis 5 Jose A Thornton. [address], [place], [place], [address] , [place]. tel:[phone] Referring Provider: Norberto Naranjo, [address], [place], [place], [address]. tel:[phone] OFFICE/OUTPA TIENT VISIT, [facility], [address], [place], [place], [address], [place] tel:[phone] [facility] Hep c (chief complaint)h eadache (chief complaint)a nxiety (chief complaint)t obacco (chief complaint)E D (chief complaint) Dietary surveillance and counselingOther chronic hepatitisRespirato ry abnormality, unspecifiedGeneral ized anxiety disorderHeadacheEr ectile Dysfunction 4 Jose A Thornton. [address], [place], [place], [address] , . tel:[phone] Referring Provider: Norberto Naranjo [address], [place], [place], [address]. tel:[phone] OFFICE/OUTPA TIENT VISIT, [facility], [address] [place], [address], [place] tel:[phone] [facility] headcache (chief complaint)a nxiety (chief complaint) Dietary surveillance and counselingHeadache Unspecified chronic liver disease without mention of alcohol 4 Jose A Thornton. [address], [place], [place], [address] , [place]. tel:[phone] Referring Provider: Norberto Naranjo, [address], [place], [place], [address]. tel:[phone] OFFICE/OUTPA TIENT VISIT, [facility], [address], [place], [place], [address], [place] tel:[phone] [facility] SOB (chief complaint)h eadache (chief complaint)a nxiety (chief complaint)E D (chief complaint) Dietary surveillance and counselingRespirat ory abnormality, unspecifiedHeadach eErectile Dysfunction 4 Jose A Thornton. [address], [place], [place], [address] , [place]. tel:[phone] Referring Provider: Sy Stanton [address], [place], [place], [address]. tel:[phone] OFFICE/OUTPA TIENT VISIT, [facility], [address], [place], [place], [address], [place] tel:[phone] [facility] headache (chief complaint)t esticular pain (chief complaint)a nxiety (chief complaint)E D (chief complaint) HeadacheAcute hepatitis C without mention of hepatic comaErectile Dysfunction 4 Jose A Thornton. [address], [place], [place], [address] , [place]. tel:[phone] Referring Provider: Sy Stanton [address], [place], [place], [address]. tel:[phone] OFFICE/OUTPA TIENT VISIT, [facility], [address], [place], [place], [address], [place] tel:[phone] [facility] headache (chief complaint)a nxiety (chief complaint)E D (chief complaint) HeadacheErectile Dysfunction 4 Jose A Thornton. [address], [place], [place], [address] , [place]. tel:[phone] Referring Provider: Sy Stanton [address], [place], [place], [address]. tel:[phone] OFFICE/OUTPA TIENT VISIT, [facility], [address], [place], [place], [address], [place] tel:[phone] [facility] headache (chief complaint)H ep C (chief complaint)a nxiety (chief complaint)E D (chief complaint) Dietary surveillance and counselingHeadache Other chronic hepatitisErectile Dysfunction 4 Jose A Thornton. [address], [place], [place], [address] , [place]. tel:[phone] Referring Provider: Sy Stanton [address], [place], [place], [address]. tel:[phone] OFFICE/OUTPA TIENT VISIT, [facility], [address], [place], [place], [address], [place] [phone] [facility] knee pain (chief complaint)h eadache (chief complaint)a nxiety (chief complaint)E D (chief complaint) Pain in joint involving lower legHeadacheAcute hepatitis C without mention of hepatic comaErectile Dysfunction 4 Jose A Thornton. [address], [place], [place], [address] , [place]. [phone] Referring Provider: Sy Stanton [address], [place], [place], [address]. tel:[phone] OFFICE/OUTPA TIENT VISIT, [facility], [address], [place], [place], [address], [place] [phone] [facility] headache (chief complaint)a nxiety (chief complaint)k nee pain (chief complaint)H ep C (chief complaint)s ick (chief complaint) HeadacheBronchitis , AcutePain in joint involving lower leg 4 Jose A Thornton. [address], [place], [place], [address] , [place]. tel:[phone] Referring Provider: Sy Stanton [address], [place], [place], [address]. tel:[phone] OFFICE/OUTPA TIENT VISIT, [facility], [address], [place], [place], [address], [place] [phone] [facility] SOB (chief complaint)h eadache (chief complaint)a nxiety (chief complaint)h ep C (chief complaint) Dietary surveillance and counselingWheezing HeadacheAcute hepatitis C without mention of hepatic comaGeneralized anxiety disorder 4 Jose A Thornton. [address], [place], [place], [address] , [place]. tel:[phone] Referring Provider: Norberto Naranjo, [address], [place], [place], [address]. tel:[phone] OFFICE/OUTPA TIENT VISIT, [facility], [address], [place], [place], [address], [place] tel:[phone] [facility] Hep C (chief complaint)h eadache (chief complaint)a nxiety (chief complaint)a llergy (chief complaint) Dietary surveillance and counselingAcute hepatitis C without mention of hepatic comaHeadacheAllerg ic rhinitis, cause unspecified Apr-0 3-201 4 Jose A Thornton. [address], [place], [place], [address] , [place]. tel:[phone] Referring Provider: Norberto Naranjo, [address], [place], [place], [address]. tel:[phone] OFFICE/OUTPA TIENT VISIT, [facility], [address], [place], [place], [address], [place] tel:[phone] [facility] Hep C (chief complaint) Dietary surveillance and counselingOther chronic hepatitis Mar-2 6201 4 Jose A Thornton. [address], [place], [place], [address] , [place]. tel:[phone] Referring Provider: Norberto Naranjo, [address], [place], [place], [address]. tel:[phone] OFFICE/OUTPA TIENT VISIT, [facility], [address], [place], [place], [address], [place] tel:[phone] [facility] headache (chief complaint)a nxiety (chief complaint) Dietary surveillance and counselingHeadache Mar-0 7-201 4 Jose A Thornton. [address], [place], [place], [address] , [place]. tel:[phone] Referring Provider: Norberto Naranjo [address], [place], [place], [address]. tel:[phone] OFFICE/OUTPA TIENT VISIT, [facility], [address], [place], [place], [address], [place] tel:[phone] [facility] Headache (chief complaint)a nxiety (chief complaint) Headache 4 Jose A Thornton. [address], [place], [place], [address] , [place]. tel:[phone] Referring Provider: Norberto Naranjo, [address], [place], [place], [address]. tel:[phone] OFFICE/OUTPA TIENT VISIT, [facility], [address], [place], [place], [address], [place] tel:[phone] [facility] headache (chief complaint)a nxiety (chief complaint) Dietary surveillance and counselingHeadache Other and unspecified hyperlipidemia 4 Jose A Thornton. [address], [place], [place], [address] , [place]. tel:[phone] Referring Provider: Sy Stanton [address], [place], [place], [address]. tel:[phone] OFFICE/OUTPA TIENT VISIT, [facility], [address], [place], [place], [address], [place] tel:[phone] [facility] headache (chief complaint)a nxiety (chief complaint) Dietary surveillance and counselingHeadache Ganglion, unspecifiedDisturb ances of vision 3 Jose A Thornton. [address], [place], [place], [address] , [place]. tel:[phone] Referring Provider: Norberto Naranjo [address], [place], [place], [address]. tel:[phone] OFFICE/OUTPA TIENT VISIT, [facility], [address], [place], [place], [address], [place] tel:[phone] [facility] headache (chief complaint)g anglion cyst (chief complaint)e yesight (chief complaint)a nxiety (chief complaint) Dietary surveillance and counselingHeadache Ganglion, unspecifiedDisturb ances of vision 3 Jose A Thornton. [address], [place], [place], [address] , [place]. tel:[phone] [id number] Referring Provider: Norberto Naranjo, [address], [place], [place], [address]. tel:[phone] OFFICE/OUTPA TIENT VISIT, [facility], [address], [place], [place], [address], [place] tel:[phone] [facility] stich removal (chief complaint) Cellulitis 3 Jose A Thornton. [address], [address], [place], [place], [address] , [place]. tel:[phone] Referring Provider: Norberto Naranjo, [address], [place], [place], [address]. tel:[phone] OFFICE/OUTPA TIENT VISIT, [facility], [address], [place], [place], [address], [place] tel:[phone] [facility] cellulitis (chief complaint)h eadache (chief complaint)a nxiety (chief complaint) HeadacheCellulitis Dietary surveillance and counseling 3 Jose A Thornton. [address], [place], [place], [address] , [place]. [phone] Referring Provider: Sy Stanton [address], [place], [place], [address]. tel:[phone] OFFICE/OUTPA TIENT VISIT, [facility], [address], [place], [place], [address], [place] tel:[phone] [facility] headache (chief complaint)b ack pain (chief complaint)a nxiety (chief complaint)H ep C (chief complaint) Dietary surveillance and counselingHeadache LumbagoUnspecified chronic liver disease without mention of alcohol 3 Jose A Thornton. [address], [place], [place], [address] , [place]. tel:[phone] Referring Provider: Norberto Naranjo, [address], [place], [place], [address]. tel:[phone] OFFICE/OUTPA TIENT VISIT, [facility], [address], [place], [place], [address], [place] tel:[phone] [facility] headache (chief complaint)b ack pain (chief complaint)c yst right hand (chief complaint) Dietary surveillance and counselingLumbagoH eadacheGanglion, unspecified 3 Jose A Thornton. [address], [place], [place], [address] , [place]. tel:[phone] Referring Provider: Sy Stanton [address], [place], [place], [address]. tel:[phone] OFFICE/OUTPA TIENT VISIT, [facility], [address], [place], [place], [address], [place] tel:[phone] [facility] Headache (chief complaint)a nxiety (chief complaint)b ack pain (chief complaint) Dietary surveillance and counselingLumbagoH eadache 3 Jose A Thornton. [address], [place], [place], [address] , [place]. tel:[phone] Referring Provider: Sy Stanton [address], [place], [place], [address]. tel:[phone] OFFICE/OUTPA TIENT VISIT, [facility], [address], [place], [place], [address], [place] tel:[phone] [facility] Headache (chief complaint)a nxiety (chief complaint)E D (chief complaint) Dietary surveillance and counselingHeadache Other and unspecified hyperlipidemiaErec tile Dysfunction 3 Jose A Thornton. [address], [place], [place], [address] , [place]. tel:[phone] Referring Provider: Sy Stanton [address], [place], [place], [address]. tel:[phone] OFFICE/OUTPA TIENT VISIT, [facility], [address], [place], [place], [address], [place] tel:[phone] [facility] Medicine HLP (chief complaint)a llergy (chief complaint) Dietary surveillance and counselingOther and unspecified hyperlipidemiaAlle rgic rhinitis, cause unspecified 3 Jose A Thornton. [address], [place], [place], [address] , [place]. tel:[phone] Referring Provider: Norberto Naranjo, [address], [place], [place], [address]. tel:[phone] OFFICE/OUTPA TIENT VISIT, [facility], [address], [place], [place], [address], [place] tel:[phone] [facility] Medicine headache (chief complaint)a nxiety (chief complaint)A llergy (chief complaint) Dietary surveillance and counselingHeadache Allergic rhinitis, cause unspecified 3 Jose A Thornton. [address], [place], [place], [address] , [place]. tel:[phone] Referring Provider: Sy Stanton [facility] A, [place], [place], [address]. tel:[phone] Family History Family Member Type Diagnosis Age At Onset Father Problem (finding) Hypertension Brother Problem (finding) Hypertension Mother Problem (finding) Alive and well Problem (finding) Family history of Anxie ty Payers Payer name Insurance type Covered alliance party ID Authoriza tion(s) No Information Social History Type Description Quantity Date Captured Comments Alcohol Use Details Caffeine Use Details Unknown Tobacco Use Status Occasional cigarette smoker Smoking Status Heavy tobacco smoker Sex Male Vital Signs Date / Time: Height Weight BMI Pulse Rate Blood Pressure Temperature Respiratory Rate Body Surface Area Head Circumference BMI percentile Pulse Ox Inhaled Ox 10:08 AM 177.80 cm 174.00 lbs 24.9 7 kg/m eter (2) 87 /min 122/82 mm[Hg] 97.8 F 18 /min Chief Complaint And Reason For Visit From encounter dated '03/03/2016 08:30'. headache1 (chief complaint). Description: Pt has chronic heaache. Pt has remoate history of head trauma. Pt has daily throbbing headache. Pt denies any new head injury. Pt denies any acute headache anxiety1 (chief complaint). Description: PT has chronic anxiety. Pt denies any depression or any suicidal thought. Pt takes xanax PRN for anxiety. Pt denies any crying spells alcohol1 (chief complaint). Description: Pt continues to drink alcohol despite active hep C. Pt hadUDS done last time and no oxycodone, however, there was large amount of alcohol in his system. Pt told me he only drinks occassionally and he does not mix alcohol with xanax and pain meds. Plan Of Treatment Date Type Action Status Goal Td vaccine. Due on 16 due Goal Depression screening. Due on due Goal Tdap. Due on due Goal Td vaccine. Due on 16 due Goal Tdap. Due on due Goal Depression screening. Due on due Goal Tdap. Due on due Goal Td vaccine. Due on 16 due Goal Depression screening. Due on due Goal Tdap. Due on due Goal Depression screening. Due on due Goal Td vaccine. Due on 16 due Goal Depression screening. Due on due Goal Tdap. Due on due Goal Td vaccine. Due on 16 due Goal Td vaccine. Due on 16 due Goal Depression screening. Due on due Goal Tdap. Due on due Goal Tdap. Due on due Goal Depression screening. Due on due Goal Td vaccine. Due on 16 due Goal Tdap. Due on due Goal Td vaccine. Due on 16 due Goal Depression screening. Due on due Goal Tdap. Due on due Goal Depression screening. Due on due Goal Td vaccine. Due on due Goal Tdap. Due on due Goal Depression screening. Due on due Goal Td vaccine. Due on due Goal Depression screening. Due on due Goal Tdap. Due on due Goal Td vaccine. Due on due Goal Td vaccine. Due on due Goal Tdap. Due on due Goal Depression screening. Due on due Goal Td vaccine. Due on due Goal Depression screening. Due on due Goal Tdap. Due on due Goal Td vaccine. Due on due Goal Tdap. Due on due Goal Depression screening. Due on due Goal Tdap. Due on due Goal Depression screening. Due on due Goal Td vaccine. Due on due Goal Tdap. Due on due Goal Td vaccine. Due on due Goal Depression screening. Due on due Goal Depression screening. Due on due Goal Td vaccine. Due on 15 due Goal Tdap. Due on due Goal Tobacco cessation counseling completed Goal Tobacco cessation counseling completed Goal Tobacco cessation counseling completed Goal Tobacco cessation counseling completed Goal Tobacco cessation counseling completed Goal Tobacco cessation counseling completed Goal Tobacco cessation counseling completed Goal Tobacco cessation counseling completed Goal Tobacco cessation counseling completed Goal Tobacco cessation counseling completed Goal Tobacco cessation counseling completed Goal Tobacco cessation counseling completed Goal Tobacco cessation counseling completed Goal Tobacco cessation counseling completed Goal Tobacco cessation counseling completed Goal Tobacco cessation counseling completed Goal Tobacco cessation counseling completed Goal Tobacco cessation counseling completed Goal Tobacco cessation counseling completed Goal Tobacco cessation counseling completed Goal Tobacco cessation counseling completed Goal Tobacco cessation counseling completed Goal Tobacco cessation counseling completed Goal Tobacco cessation counseling completed Goal Tobacco cessation counseling completed Goal Tobacco cessation counseling completed Goal Tobacco cessation counseling completed Referral Ordered: Maximino Fox (related to Varicose veins of right lower extremities with pain) ordered Referral Referred To: Maximino Fox [address] [place], [id number] Ordered: Referrals: Maximino Fox. Evaluate and treat ordered Referral Ordered: Gastroenterology (related to Acute hepatitis C without mention of hepatic coma) ordered Referral Ordered: Referrals: Gastroenterology. Evaluate and treat ordered Referral Ordered: Plastic Surgery (related to Acute hepatitis C without mention of hepatic coma) ordered Referral Ordered: Referrals: Plastic Surgery. Evaluate and treat ordered Referral Ordered: Referral: Pulmonary Diseases. ordered Referral Ordered: CHEST X-RAY PA/LAT TWO-VIEWS ordered Referral Ordered: US TESTES-SCROTAL ordered Referral Ordered: KNEE XRAY, 3 VIEW Left ordered Referral Ordered: US DUPLEX LOWER EXREMITY - ALEXANDER ordered Referral Ordered: Referral: Gastroentergy. Evaluate and treat. ordered Referral Ordered: US EXAM, ABDOM, COMPLETE ordered Referral Ordered: MRI BRAIN W/O & W/DYE ordered Referral Ordered: Referral: Plastic Surg. Evaluate and treat. ordered Referral Ordered: Referral: Ophthalmology. Evaluate and treat. ordered Referral Ordered: MRI LUMBAR SPINE W/O DYE ordered Referral Ordered: LUMBAR XRAY AP AND LAT ONLY ordered History Of Present Illness Encounter Date Complaint History Of Prese nt Illness headache1 Pt has chronic h eaache. Pt has remoate history of head trauma. Pt has daily throbbing headache. Pt denies any new head injury. Pt denies any acute headache anxiety1 PT has chronic a nxiety. Pt denies any depression or any suicidal thought. Pt takes xanax PRN for anxiety. Pt denies any crying spells alcohol1 Pt continues to drink alcohol despite active hep C. Pt had UDS done last time and no oxycodone, however, there was large amount of alcohol in his system. Pt told me he only drinks occassionally and he does not mix alcohol with xanax and pain meds. COPD1 Pt uses symbicor t, atovent and proair Pt still uses proair multilpe times per day due to wheezing and SOB. No chest pain Pt is noncompliant with smoking cessation anxiety1 Pt has chronic a nxiety. Pt depression or any sucidasl thought. Pt takes xanax and doing ok Pt denies any crying spells headache1 Pt has chronic h eadache due to encephalomalacia. Pt takes percocet for pain Pt c/o throbbing headache daily ED Pt has ED. Pt de nies any testicular pain or nodule. Pt has good libido leg pain1 Pt has mild engo rged veins right lower leg and he notices some pain sometimes Pt denies any calf pain. Pt notices the engorged veins for long time but worse lately. Pt denies any chest pain or SOB. Pt denies any recent travel or bedrest anxiety1 pt has chronic a nxiety. Pt denies any depression or any suicidal thought. Pt denies any crying spells. headache1 Pt has chronic h eadache due to history of head injury and trauma. Pt was in a head coma for mulitiple months in the past. Pt doing ok with percocet. Pt has headache daily. anxiety1 Pt has chronic a nxiety. pt denies any depression or any suicidal thought. Pt takes xanax PRN and doing ok Pt denies any crying spells COPD1 Pt has COPD and he takes symbicort, atrovent and also albuterol PRN. Pt still smoking. Pt is noncompliant with pulmonary GERD1 Pt has GERD Pt t akes omeprazole PRN. Pt still not sure if he has wilcox. Pt denies any abd pain. or gERD symptoms headache1 Pt has chronic h eadache. Pt takes percocet and doing ok. Pt denies any worsening pain GERD1 Pt has GERD. Pt has possible wilcox esopahgus. Pt denies any GERD symptoms daily so he only takes omeprazole PRN. Pt denies any abd pain headache Pertinent negati ves include vomiting. Additional information: Pt has chronic headache. Pt takes percocet for pain PRN. Pt denies any worsening headache Pt denies any acute head injury. anxiety1 Pt has chrnoic a nxity Pt denies any depression or any suicdial thought. Pt takes xanax PRN. Pt denies any crying spells HTN Pt has mild HTN today pt denies any chest pain or headache ED Pt has ED. Pt wa nts cialis sample. Pt denies any testicular pain or nodule headache1 Pt has traumatic headache chronically. Pt states that percocet works much better than norco. Pt wants to get back to 150 per month. Pt marylin any worsneing headache Pt denies any vision change anxiety1 Pt has chronic a nxiety pt denies any depression or any suicidal thought. Pt takes xanaxn PRN and doign ok. Pt denies any crying spells GERD1 Pt has GERD symp toms. Pt told me he had negtive EGD. Pt takes omeprazole daily to prevent GERD. Pt denies any abd pain or GERD symptoms COPD Pt has COPD and he uses atrovent, symbicort and proair daily. Pt is noncompliant with pulmonary. Pt denies any acute SOB. Pt still smoking headache Additional infor mation: Pt has chronic traumatic headache. Pt states that norco no longer works. Pt wants to try percocet. Pt denies any new injury. Anxiety1 Pt has chronic a nxiety PT denie any depression or any suicial thought. Pt denies any crying spells. GERD1 Pt has GERD Pt h as not been taking omeprazole. 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 Pt has gERD symptoms daily. without med. pt had EGD recently GERD1 Pt has GERD. Pt recenty had eGD done and was told everything ok. Pt on average has GERd symptoms 2-3 per week. Insurance does not cover nexium. Pt denies any abd pain. headache1 Pt has chronic h eadache due to history of traumatic injury. Pt denies any worsening headache Pt denies any new injury. Pt has headache daily, no change in quality of headache Anxiety1 Pt has chronic a nxiety. Pt denies any depresion or any suicidasl thought. P takes xanax tobacco Pt still smoking . Pt uses inhaler Pt is noncompliant with pulmoanry. Pt is noncompliant with smoking cessation ED Pt has ED. Pt de nies any testicular pain or nodule COPD Pt has COPD. Pt still smoking Pt is using symbicort and atrovent. Pt uses proair 2-3 per day. Pt denies any acute SOB GERD1 Pt has been havi ng severe GERD symptoms for several months. Pt has EGD scheduled for next month. Pt denies any abd pain anxiety1 Pt has chronic a nxiety Pt denies any depression or any sucidasl thought. Pt takes xanax PRN. Pt denies any crying spellls. headache1 Pt has chronic h eadache Pt has hsitory of trauma Pt denies any worsening pain Pt denies any nauea, vomiting or any vision change Anxiety1 Pt has chronic a nxiety. Pt denies any depression or any suicidal thought. Pt denies any crying spells or any feeling of hopelessness. Hep C1 Pt has active he pc. Pt finally seen Dr. Díaz and will start harvoni treatment pending insurance approval. Pt denies any abd pain MCV1 Pt has enlarged MCV. Pt used to drink alcohol heavilyi. Pt is not anemic Pt currently only drinks socially COPD1 Pt has severe bu lous COPD. Pt no longer sees pulmonary. Pt is on symbicort, atrovent and he uses proair 2-3 per week. Pt still smoking . headache1 Pt has chornic h eadache. Pt has throbbing headache daily. Pt has history of remote head trauma. Pt denies any worsening headache. 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 Pt denies any new injury. Pt denies any change in qualtiy of headahe Pt has headache daily anxiety1 Pt has chronic a nxiety. Pt denies any depression or any suicidal thought. Pt doing ok. Pt takes xaanx RPN. pt denies any crying spells Pt denies any feeling of hopelessness Anxiety1 Pt has chronic a nxiety and depression. Pt has been taking xanax which is doing ok. Pt denies any suicidal thought. Pt denies feeling of hopelessness. 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 Pt takes norco for pain Pt deneis any worsening headahe tobacco1 Pt has been flaquita cross and he is only smoking 5 cig per day now. Pt used to smoke at least one pack. HTN Pt has intermite nt HTN. Pt states that he is always stressed out. Pt denies any chest pain or headache. ED PT has ED Pt has good libido. He deneis any testciular pain Hep C Pt is noncomplia nt with hep C treatment. Pt told me he found a different GI but he is a family doctor?? I am not sure what he is doing. Pt does not want to go to current GI due to transportation issue Anxiety Additional infor lupe: Pt has chronic anxiety. Pt denies any depression or any suicidal thought. Pt doing ok. Headahe Pt has chronic h eadache. Pt denies any worsening headache. Pt has history of remote head trauma COPD Pt has COPD. Pt has appointment with pulmonary next week. Pt is only using atrovent BID and symbicort BID. Pt denies any SOB now. Pt uses venotlin BID on average Pt still smoking headache Pertinent negati ves include memory loss or vomiting. Additional information: Pt has chronic throbbing headache. Pt had history of head trauma. Pt denies any nauea, vomiting or vision problem. No worsening headache. anxiety The patient pres ents with anxious/fearful thoughts but denies fatigue. The anxiety is associated with headache. The patient denies any vomiting. Additional information: Pt has chronic anxiety. Pt denies any depression or any suicidal thought. Pt ateks xanxa for years. Pt doing ok. Hep C Pt has hep C. pt is having some problem with his GI physician and he still has not started treatment yet. COPD Pt has COPD. Pt just seeen Dr. Chavira. Pt feels SOB frequently. Pt is using atrovent and also ventolin. Pt uses ventolin multiple times per day. Pt passed the walking test. Pt also wheezing frequently elbow pain Location: elbow. Additional information: Pt c/o left elbow pain and pain radiating down to left forearm for two weeks. Pt denies any injury. Pt denies any hand numbness. Anxiety Additional infor mation: PT has chronic anxiety. Pt denies any depression or any suicdial thought. headache Additional infor mation: Pt has chronic headache. Pt denies any worsening headache. COPD Pt has COPD. Pt seen pulmonary physician and orderred some test per patient. Pt takes atrovent and venotlin and denies any worsening breathing. COPD Pt has COPD. Pt still smoking. Pt is noncompliant with pulmonary Pt still has not seen pulmonary yet. Pt takes atrovent and venotlin PRN Pt denies any acute SOB Anxiety Additional infor mation: PT has chronic anxiety. Pt denies any depression or any suicdial thought. Pt takes xanax PRN. headache Additional infor mation: Pt has chronic headache. Pt has history of remote head trauma. ED Pt has ED allergy Pt has been artur irene OTC allergy meds like PayEase but not working allergy Additional infor mation: Pt has seasonal allergy. Pt c/o running nose, itchy eyes, sinus congestion for several weeks. headache Additional infor mation: Pt has chronic headache. Pt denies any worsening headacahe. pt denies any worsening headache. Anxiety Additional infor mation: Pt has chronic anxeity. Pt denies any sucidal thought or depression. Pt takes xanax PRN. COPD Pt has COPD> Pt uses atrovent. Pt uses albuterol once per day. Pt denies any SOB. pt is noncompliant with pulmonary MD COPD Instructions Date Instruction Additional Infor mation Prescribed Activity and Exercise Education Related to Dietary Surveillance and Counseling Prescribed Diet Educ ation/Lifestyle Education Regarding Diet Related to Dietary Surveillance and Counseling Physical activity counseling Rel ated to Dietary surveillance counseling Decrease caloric intake Related to Dietary surveillance counseling Decrease caloric intake Related to Dietary surveillance counseling Physical activity counseling Rel ated to Dietary surveillance counseling Physical activity counseling Rel ated to Dietary surveillance counseling Decrease caloric intake Related to Dietary surveillance counseling Physical activity counseling Rel ated to Dietary surveillance counseling Decrease caloric intake Related to Dietary surveillance counseling Decrease caloric intake Related to Dietary surveillance counseling Physical activity counseling Rel ated to Dietary surveillance counseling Dietary counseling Related to Di etary surveillance counseling Decrease caloric intake Related to Dietary surveillance counseling Dietary counseling Related to Di etary surveillance counseling Decrease caloric intake Related to Dietary surveillance counseling Decrease caloric intake Related to Dietary surveillance counseling Dietary counseling Related to Di etary surveillance counseling Dietary counseling Related to Di etary surveillance counseling Decrease caloric intake Related to Dietary surveillance counseling Dietary counseling Related to Di etary surveillance counseling Decrease caloric intake Related to Dietary surveillance counseling Decrease caloric intake Related to Dietary surveillance counseling Dietary counseling Related to Di etary surveillance counseling Dietary counseling Related to Di etary surveillance counseling Decrease caloric intake Related to Dietary surveillance counseling Dietary counseling Related to Di etary surveillance counseling Decrease caloric intake Related to Dietary surveillance counseling Dietary counseling Related to Di etary surveillance counseling Decrease caloric intake Related to Dietary surveillance counseling Dietary counseling Related to Di etary surveillance counseling Decrease caloric intake Related to Dietary surveillance counseling Dietary counseling Related to Di etary surveillance counseling Decrease caloric intake Related to Dietary surveillance counseling Dietary counseling Related to Di etary surveillance counseling Decrease caloric intake Related to Dietary surveillance counseling Decrease caloric intake Related to Dietary surveillance counseling Dietary counseling Related to Di etary surveillance counseling Dietary counseling Related to Di etary surveillance counseling Decrease caloric intake Related to Dietary surveillance counseling Decrease caloric intake Related to Dietary surveillance counseling Dietary counseling Related to Di etary surveillance counseling Decrease caloric intake Related to Dietary surveillance counseling Dietary counseling Related to Di etary surveillance counseling Decrease caloric intake Related to Dietary surveillance counseling Dietary counseling Related to Di etary surveillance counseling Assessments Type Assessment Date assessment Headache assessment Anxiolytic dependence 6 assessment Alcohol dependence, uncomplicate d Mental Status Date Cognitive Assessment Orientation - [place] ed to time, place, person, situation.
[2025-01-31 01:49] LABS: Hematocrit 42.6 % (42.0-52.0); Hemoglobin 13.5 g/dL (14.0-18.0); Immature Granulocyte Percent A 0.3 % (0-0.5); Lymphocytes Absolute Auto 0.70 K/mm3 (0.9-3.2); Mean Corpuscular HGB Conc 31.7 g/dl (32-36); Mean Corpuscular Hemoglobin 29.3 pg (26-34); Mean Corpuscular Volume 92.6 fl (80-100); Nucleated Red Blood Cells Absolute Auto 0.000 K/mm3 (0.0-0.012); Nucleated Red Blood Cells Perc 0.0 % (0.0-0.2); Platelet Count Result 286 k/mm3 (150-375); Red Blood Count 4.60 M/mm3 (4.6-6.20); White Blood Count 12.5 K/mm3 (4.5-10.0)
[2025-01-31 01:59] LABS: Alanine Aminotransferase 17 U/L (6-50); Albumin Level 3.8 g/dL (3.5-5.1); Alkaline Phosphatase 127 U/L (38-126); Anion Gap 5 mmol/L (4-12); Aspartate Amino Transferase 31 U/L (17-59); Bilirubin,Total 0.3 mg/dL (0.2-1.3); Blood Urea Nitrogen 17 mg/dL (9-20); Calcium 9.1 mg/dL (8.4-10.2); Carbon Dioxide 27 mmol/L (22-30); Chloride 101 mmol/L (98-107); Estimated CRCL calculation 82 ml/min; Estimated Glomerular Filt Rate > 60; Glucose 118 mg/dL (65-110); Lipase 63 U/L (23-300); Potassium 4.4 mmol/L (3.4-5.0); Sodium 133 mmol/L (137-145); Total Protein 7.7 g/dL (6.3-8.2)
--- OUTSIDE RECORDS SUMMARY | 2025-01-31 02:03 | XMS_ITS | Clinical Summary ---
Author Organization [facility] Address [address] [id number] Phone Care Team Providers Care Ash Collector Name Role Phone Provider, None Primary Care [...] on file Legal Sex Male 2:08 PM [employer] Gender Identity Not on file Sexual Orientation [...] topic Insurance MEDICARE MEDICAID [place] Care Teams Ash Collector Relationship Specialty Start Date End Date Provider, None [place] PCP - General 12/23/20
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
--- OUTSIDE RECORDS SUMMARY | 2025-01-31 02:03 | XMS_ITS | Continuity of Care Document ---
Author Organization [facility] Address [address] 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 [address] [facility] [address], [place], [place], [address] , . tel:[phone] Referring Provider: Sy Stanton [facility] A, [place], [place], [address]. tel:[phone] OFFICE/OUTPA TIENT VISIT, [facility], [address] [place] [place], [address], [place] tel:[phone] [facility] headache1 (chief complaint)a nxiety1 (chief complaint)C OPD1 (chief complaint) COPDHeadacheAnxiol ytic dependence 6 Jose A Nash [address], [place], [place], [address] , [place]. tel:[phone] Referring Provider: Sy Stanton [place], [place], [address]. tel:[phone] OFFICE/OUTPA TIENT VISIT, [facility], [address] [place], [address], [place] tel:[phone] [facility] headache1 (chief complaint)a nxiety1 (chief complaint)l eg pain1 (chief complaint)E D (chief complaint) HeadacheVaricose veins of right lower extremities with painAnxiolytic dependenceOther male erectile dysfunction 6 Jose A Thornton. [address] [facility] [place] [address] , [place]. tel:[phone] Referring Provider: Sy Stanton [facility] [place], [address]. tel:[phone] OFFICE/OUTPA TIENT VISIT, [facility], [address] [place], [address], [place] tel:[phone] [facility] headache1 (chief complaint)a nxiety1 (chief complaint)C OPD1 (chief complaint)G ERD1 (chief complaint) GERD w/ esophagitisCOPDHea dacheAnxiolytic dependence 6 Jose A Nash [address], [place], [place], [address] , [place]. tel:[phone] Referring Provider: Sy Stanton [address], [place], [place], [address]. tel:[phone] OFFICE/OUTPA TIENT VISIT, [facility], [address], [place], [place], [address], [place] tel:[phone] [facility] GERD1 (chief complaint)h eadache (chief complaint)a nxiety1 (chief complaint)H TN (chief complaint)E D (chief complaint) Wilcox's esophagus without dysplasiaHeadacheA nxiolytic dependenceEssentia l (primary) hypertension 6 Jose A Nash [address], [place], [place], [address] , [place]. [phone] Referring Provider: Sy Stanton [address], [place], [place], [address]. tel:[phone] OFFICE/OUTPA TIENT VISIT, [facility], [address], [place], [place], [address], [place] tel:[phone] [facility] headache1 (chief complaint)a nxiety1 (chief complaint)G ERD1 (chief complaint) HeadacheAnxiolytic dependenceGERD w/o esophagitis 6 Jose A Nash [address], [place], [place], [address] , [place]. tel:[phone] Referring Provider: Sy Stanton [address], [place], [place], [address]. tel:[phone] OFFICE/OUTPA TIENT VISIT, [facility], [address], [place], [place], [address], [place] tel:[phone] [facility] GERD1 (chief complaint)A nxiety1 (chief complaint)h eadache (chief complaint)C OPD (chief complaint) HeadacheAnxiolytic dependenceGERD w/o esophagitisCOPD 6 Naranjo Norberto. [address], [place], [place], [address] , [place]. tel:[phone] Referring Provider: Sy Stanton [address], [place], [place], [address]. tel:[phone] OFFICE/OUTPA TIENT VISIT, [facility], [address], [place], [place], [address], [place] tel:[phone] [facility] GERD1 (chief complaint)h eadache1 (chief complaint)A nxiety1 (chief complaint)t obacco (chief complaint)E D (chief complaint) GERD w/o esophagitisAnxioly tic dependenceHeadache Male erectile dysfunction, unspecified 6 Jose A Thornton. [address], [place], [place], [address] , [place]. tel:[phone] Referring Provider: yS Stanton [address], [place], [place], [address]. tel:[phone] OFFICE/OUTPA TIENT VISIT, [facility], [address], [place], [place], [address], [place] tel:[phone] [facility] headache1 (chief complaint)a nxiety1 (chief complaint)G ERD1 (chief complaint)C OPD (chief complaint) GERD without esophagitisHeadach eAnxiolytic dependenceOther emphysema 6 Jose A Thornton. [address], [place], [place], [address] , [place]. tel:[phone] Referring Provider: Sy Stanton [address], [place], [place], [address]. tel:[phone] OFFICE/OUTPA TIENT VISIT, [facility], [address], [place], [place], [address], [place] tel:[phone] [facility] COPD1 (chief complaint)h eadache1 (chief complaint)A nxiety1 (chief complaint)H ep C1 (chief complaint)M CV1 (chief complaint) Acute hepatitis C without hepatic comaOther emphysemaChronic pain syndromeAnxiolytic dependence 5 Jose A Thornton. [address], [place], [place], [address] , [place]. tel:[phone] Referring Provider: Sy Stanton [address], [place], [place], [address]. tel:[phone] OFFICE/OUTPA TIENT VISIT, [facility], [address], [place], [place], [address], [place] tel:[phone] [facility] headadche (chief complaint)a nxiety1 (chief complaint) Essential (primary) hypertensionHeadac he 5 Jose A Thornton. [address], [place], [place], [address] , [place]. tel:[phone] Referring Provider: Sy Stanton [facility] A, [place], [place], [address]. tel:[phone] OFFICE/OUTPA TIENT VISIT, [facility], [address], [place], [place], [address], [place] tel:[phone] [facility] Anxiety1 (chief complaint)h eadache1 (chief complaint)t obacco1 (chief complaint)H TN (chief complaint)E D (chief complaint) Essential (primary) hypertensionChroni c viral hepatitis COther male erectile dysfunctionPost-tr aumatic headache, unspecified, intractable 5 Jose A Thornton. [address], [place], [place], [address] , [place]. tel:[phone] Referring Provider: Sy Stant[address], [place], [place], [address]. tel:[phone] OFFICE/OUTPA TIENT VISIT, [facility], [address], [place], [place], [address], [place] tel:[phone] [facility] Headahe (chief complaint)C OPD (chief complaint)H ep C (chief complaint)A nxiety (chief complaint) Chronic airway obstruction, not elsewhere classifiedHeadache Acute hepatitis C without mention of hepatic comaUnspecified essential hypertension 5 Jose A Thornton. [address], [place], [place], [address] , [place]. tel:[phone] Referring Provider: Sy Stanton [address], [place], [place], [address]. tel:[phone] OFFICE/OUTPA TIENT VISIT, [facility], [address], [place], [place], [address], [place] tel:[phone] [facility] headache (chief complaint)a nxiety (chief complaint)H ep C (chief complaint)C OPD (chief complaint) HeadacheCOPDAcute hepatitis C without mention of hepatic coma 5 Jose A Thornton. [address], [place], [place], [address] , [place]. tel:[phone] Referring Provider: Sy Stanton [address], [place], [place], [address]. tel:[phone] OFFICE/OUTPA TIENT VISIT, [facility], [address], [place], [place], [address], [place] tel:[phone] [facility] COPD (chief complaint)h eadache (chief complaint)A nxiety (chief complaint)e lbow pain (chief complaint) HeadacheOther and unspecified hyperlipidemiaChro gris airway obstruction, not elsewhere classifiedElbow pain 5 Jose A Thornton. [address], [place], [place], [address] , [place]. tel:[phone] Referring Provider: Sy Stanton [address], [place], [place], [address]. tel:[phone] OFFICE/OUTPA TIENT VISIT, [facility], [address], [place], [place], [address], [place] tel:[phone] [facility] COPD (chief complaint)A nxiety (chief complaint)h eadache (chief complaint)E D (chief complaint) Chronic airway obstruction, not elsewhere classifiedHeadache Acute hepatitis C without mention of hepatic comaErectile dysfunction 2 5 Jose A Nash [address], [place], [place], [address] , [place]. tel:[phone] Referring Provider: Sy Stanton [address], [place], [place], [address]. tel:[phone] OFFICE/OUTPA TIENT VISIT, [facility], [address], [place], [place], [address], [place] tel:[phone] [facility] COPD (chief complaint)C OPD (chief complaint)A nxiety (chief complaint)h eadache (chief complaint)a llergy (chief complaint)a llergy (chief complaint) Chronic airway obstruction, not elsewhere classifiedAllergic rhinitis, cause unspecifiedHeadach e 5 5 Jose A Nash [address], [place], [place], [address] , [place]. tel:[phone] Referring Provider: Sy Stanton [address], [place], [place], [address]. tel:[phone] OFFICE/OUTPA TIENT VISIT, [facility], [address], [place], [place], [address], [place] tel:[phone] [facility] headache (chief complaint)a nxiety (chief complaint)C OPD (chief complaint)E D (chief complaint) HeadacheCOPDErecti le Dysfunction 5 Jose A Nash [address], [place], [place], [address] , [place]. tel:[phone] Referring Provider: Sy Stanton [address], [place], [place], [address]. tel:[phone] OFFICE/OUTPA TIENT VISIT, [facility], [address], [place], [place], [address], [place] tel:[phone] [facility] GERD (chief complaint)C OPD (chief complaint)A nxiety (chief complaint) Dietary surveillance and counselingCOPDGERD HeadacheHypertensi on, Unspecified 0-201 5 Naranjo Norberto. [address], [place], [place], [address] , [place]. tel:[phone] Referring Provider: Sy Stanton [address], [place], [place], [address]. tel:[phone] OFFICE/OUTPA TIENT VISIT, [facility], [address], [place], [place], [address], [place] tel:[phone] [facility] headache (chief complaint)a nxiety (chief complaint)C OPD (chief complaint)E D (chief complaint) Dietary surveillance and counselingCOPDHead acheSedative, hypnotic or anxiolytic dependence, unspecifiedErectil e Dysfunction 5 Jose A Thornton. [address], [place], [place], [address] , [place]. tel:[phone] Referring Provider: Sy Stanton [address], [place], [place], [address]. tel:[phone] OFFICE/OUTPA TIENT VISIT, [facility], [address], [place], [place], [address], [place] tel:[phone] [facility] epilepsy (chief complaint)H eadache (chief complaint)C OPD (chief complaint) Dietary surveillance and counselingEpilepsy , unspecified, without mention of intractable epilepsyHeadacheCO PDOpioid type dependence, unspecified use 5 Jose A Thornton. [address], [place], [place], [address] , [place]. tel:[phone] Referring Provider: Sy Stanton [address], [place], [place], [address]. tel:[phone] OFFICE/OUTPA TIENT VISIT, [facility], [address], [place], [place], [address], [place] tel:[phone] [facility] headache (chief complaint)H ep C (chief complaint)A nxiety (chief complaint)S OB (chief complaint)E D (chief complaint) Dietary surveillance and counselingHeadache Respiratory abnormality, unspecifiedErectil e DysfunctionOther chronic hepatitis 5 Jose A Thornton. [address], [place], [place], [address] , [place]. tel:[phone] Referring Provider: Norberto Naranjo, [address], [place], [place], [address]. [phone] OFFICE/OUTPA TIENT VISIT, [facility], [address], [place], [place], [address], [place] tel:[phone] [facility] Hep c (chief complaint)h eadache (chief complaint)a nxiety (chief complaint)t obacco (chief complaint)E D (chief complaint) Dietary surveillance and counselingOther chronic hepatitisRespirato ry abnormality, unspecifiedGeneral ized anxiety disorderHeadacheEr ectile Dysfunction 4 Jose A Thornton. [address], [place], [place], [address] , . tel:[phone] Referring Provider: Norberto Naranjo [address], [place], [place], [address]. tel:[phone] OFFICE/OUTPA TIENT VISIT, [facility], [address] [place], [address], [place] tel:[phone] [facility] headcache (chief complaint)a nxiety (chief complaint) Dietary surveillance and counselingHeadache Unspecified chronic liver disease without mention of alcohol 4 Jose A Thornton. [address], [place], [place], [address] , [place]. tel:[phone] Referring Provider: Norberto Naranjo, [address], [place], [place], [address]. tel:[phone] OFFICE/OUTPA TIENT VISIT, [facility], [address], [place], [place], [address], [place] tel:[phone] [facility] SOB (chief complaint)h eadache (chief complaint)a nxiety (chief complaint)E D (chief complaint) Dietary surveillance and counselingRespirat ory abnormality, unspecifiedHeadach eErectile Dysfunction 4 Jose A Thornton. [address], [place], [place], [address] , [place]. tel:[phone] Referring Provider: Sy Stanton [address], [place], [place], [address]. tel:[phone] OFFICE/OUTPA TIENT VISIT, [facility], [address], [place], [place], [address], [place] tel:[phone] [facility] headache (chief complaint)t esticular pain (chief complaint)a nxiety (chief complaint)E D (chief complaint) HeadacheAcute hepatitis C without mention of hepatic comaErectile Dysfunction 4 Jose A Thornton. [address], [place], [place], [address] , [place]. tel:[phone] Referring Provider: Sy Stanton [address], [place], [place], [address]. tel:[phone] OFFICE/OUTPA TIENT VISIT, [facility], [address], [place], [place], [address], [place] tel:[phone] [facility] headache (chief complaint)a nxiety (chief complaint)E D (chief complaint) HeadacheErectile Dysfunction 4 Jose A Thornton. [address], [place], [place], [address] , [place]. tel:[phone] Referring Provider: Sy Stanton [address], [place], [place], [address]. tel:[phone] OFFICE/OUTPA TIENT VISIT, [facility], [address], [place], [place], [address], [place] tel:[phone] [facility] headache (chief complaint)H ep C (chief complaint)a nxiety (chief complaint)E D (chief complaint) Dietary surveillance and counselingHeadache Other chronic hepatitisErectile Dysfunction 4 Jose A Thornton. [address], [place], [place], [address] , [place]. tel:[phone] Referring Provider: Sy Stanton [address], [place], [place], [address]. tel:[phone] OFFICE/OUTPA TIENT VISIT, [facility], [address], [place], [place], [address], [place] [phone] [facility] knee pain (chief complaint)h eadache (chief complaint)a nxiety (chief complaint)E D (chief complaint) Pain in joint involving lower legHeadacheAcute hepatitis C without mention of hepatic comaErectile Dysfunction 4 Jose A Thornton. [address], [place], [place], [address] , [place]. [phone] Referring Provider: Sy Stanton [address], [place], [place], [address]. tel:[phone] OFFICE/OUTPA TIENT VISIT, [facility], [address], [place], [place], [address], [place] [phone] [facility] headache (chief complaint)a nxiety (chief complaint)k nee pain (chief complaint)H ep C (chief complaint)s ick (chief complaint) HeadacheBronchitis , AcutePain in joint involving lower leg 4 Jose A Thornton. [address], [place], [place], [address] , [place]. tel:[phone] Referring Provider: Sy Stanton [address], [place], [place], [address]. tel:[phone] OFFICE/OUTPA TIENT VISIT, [facility], [address], [place], [place], [address], [place] [phone] [facility] SOB (chief complaint)h eadache (chief complaint)a nxiety (chief complaint)h ep C (chief complaint) Dietary surveillance and counselingWheezing HeadacheAcute hepatitis C without mention of hepatic comaGeneralized anxiety disorder 4 Jose A Thornton. [address], [place], [place], [address] , [place]. tel:[phone] Referring Provider: Norberto Naranjo, [address], [place], [place], [address]. tel:[phone] OFFICE/OUTPA TIENT VISIT, [facility], [address], [place], [place], [address], [place] tel:[phone] [facility] Hep C (chief complaint)h eadache (chief complaint)a nxiety (chief complaint)a llergy (chief complaint) Dietary surveillance and counselingAcute hepatitis C without mention of hepatic comaHeadacheAllerg ic rhinitis, cause unspecified Apr-0 3-201 4 Jose A Thornton. [address], [place], [place], [address] , [place]. tel:[phone] Referring Provider: Norberto Naranjo, [address], [place], [place], [address]. tel:[phone] OFFICE/OUTPA TIENT VISIT, [facility], [address], [place], [place], [address], [place] tel:[phone] [facility] Hep C (chief complaint) Dietary surveillance and counselingOther chronic hepatitis Mar-2 6201 4 Jose A Thornton. [address], [place], [place], [address] , [place]. tel:[phone] Referring Provider: Norberto Naranjo, [address], [place], [place], [address]. tel:[phone] OFFICE/OUTPA TIENT VISIT, [facility], [address], [place], [place], [address], [place] tel:[phone] [facility] headache (chief complaint)a nxiety (chief complaint) Dietary surveillance and counselingHeadache Mar-0 7-201 4 Jose A Thornton. [address], [place], [place], [address] , [place]. tel:[phone] Referring Provider: Norberto Naranjo [address], [place], [place], [address]. tel:[phone] OFFICE/OUTPA TIENT VISIT, [facility], [address], [place], [place], [address], [place] tel:[phone] [facility] Headache (chief complaint)a nxiety (chief complaint) Headache 4 Jose A Thornton. [address], [place], [place], [address] , [place]. tel:[phone] Referring Provider: Norberto Naranjo, [address], [place], [place], [address]. tel:[phone] OFFICE/OUTPA TIENT VISIT, [facility], [address], [place], [place], [address], [place] tel:[phone] [facility] headache (chief complaint)a nxiety (chief complaint) Dietary surveillance and counselingHeadache Other and unspecified hyperlipidemia 4 Jose A Thornton. [address], [place], [place], [address] , [place]. tel:[phone] Referring Provider: Sy Stanton [address], [place], [place], [address]. tel:[phone] OFFICE/OUTPA TIENT VISIT, [facility], [address], [place], [place], [address], [place] tel:[phone] [facility] headache (chief complaint)a nxiety (chief complaint) Dietary surveillance and counselingHeadache Ganglion, unspecifiedDisturb ances of vision 3 Jose A Thornton. [address], [place], [place], [address] , [place]. tel:[phone] Referring Provider: Norberto Naranjo [address], [place], [place], [address]. tel:[phone] OFFICE/OUTPA TIENT VISIT, [facility], [address], [place], [place], [address], [place] tel:[phone] [facility] headache (chief complaint)g anglion cyst (chief complaint)e yesight (chief complaint)a nxiety (chief complaint) Dietary surveillance and counselingHeadache Ganglion, unspecifiedDisturb ances of vision 3 Jose A Thornton. [address], [place], [place], [address] , [place]. tel:[phone] Referring Provider: Norberto Naranjo, [address], [place], [place], [address]. tel:[phone] OFFICE/OUTPA TIENT VISIT, [facility], [address], [place], [place], [address], [place] tel:[phone] [facility] stich removal (chief complaint) Cellulitis 3 Jose A Thornton. [address], [place], [place], [address] , [place]. tel:[phone] Referring Provider: Norberto Naranjo, [address], [place], [place], [address]. tel:[phone] OFFICE/OUTPA TIENT VISIT, [facility], [address], [place], [place], [address], [place] tel:[phone] [facility] cellulitis (chief complaint)h eadache (chief complaint)a nxiety (chief complaint) HeadacheCellulitis Dietary surveillance and counseling 3 Jose A Thornton. [address], [place], [place], [address] , [place]. [phone] Referring Provider: Sy Stanton [address], [place], [place], [address]. tel:[phone] OFFICE/OUTPA TIENT VISIT, [facility], [address], [place], [place], [address], [place] tel:[phone] [facility] headache (chief complaint)b ack pain (chief complaint)a nxiety (chief complaint)H ep C (chief complaint) Dietary surveillance and counselingHeadache LumbagoUnspecified chronic liver disease without mention of alcohol 3 Jose A Thornton. [address], [place], [place], [address] , [place]. tel:[phone] Referring Provider: Norberto Naranjo, [address], [place], [place], [address]. tel:[phone] OFFICE/OUTPA TIENT VISIT, [facility], [address], [place], [place], [address], [place] tel:[phone] [facility] headache (chief complaint)b ack pain (chief complaint)c yst right hand (chief complaint) Dietary surveillance and counselingLumbagoH eadacheGanglion, unspecified 3 Jose A Thornton. [address], [place], [place], [address] , [place]. tel:[phone] Referring Provider: Sy Stanton [address], [place], [place], [address]. tel:[phone] OFFICE/OUTPA TIENT VISIT, [facility], [address], [place], [place], [address], [place] tel:[phone] [facility] Headache (chief complaint)a nxiety (chief complaint)b ack pain (chief complaint) Dietary surveillance and counselingLumbagoH eadache 3 Jose A Thornton. [address], [place], [place], [address] , [place]. tel:[phone] Referring Provider: Sy Stanton [address], [place], [place], [address]. tel:[phone] OFFICE/OUTPA TIENT VISIT, [facility], [address], [place], [place], [address], [place] tel:[phone] [facility] Headache (chief complaint)a nxiety (chief complaint)E D (chief complaint) Dietary surveillance and counselingHeadache Other and unspecified hyperlipidemiaErec tile Dysfunction 3 Jose A Thornton. [address], [address], [place], [place], [id number] , [place]. tel:[phone] Referring Provider: Sy Stanton [address], [place], [place], [id number]. tel:[phone] OFFICE/OUTPA TIENT VISIT, [facility], [address], [place], [place], [id number], [place] tel:[phone] [facility] HLP (chief complaint)a llergy (chief complaint) Dietary surveillance and counselingOther and unspecified hyperlipidemiaAlle rgic rhinitis, cause unspecified 3 Jose A Thornton. [address], [address], [place], [place], [address] , [place]. tel:[phone] Referring Provider: Norberto Naranjo, [address], [place], [place], [id number]. tel:[phone] OFFICE/OUTPA TIENT VISIT, [facility], [address], [place], [place], [id number], [place] tel:[phone] [facility] headache (chief complaint)a nxiety (chief complaint)A llergy (chief complaint) Dietary surveillance and counselingHeadache Allergic rhinitis, cause unspecified 3 Jose A Thornton. [address], [address], [place], [place], [address] , [place]. tel:[phone] Referring Provider: Sy Stanton [facility], [place], [place], [id number]. tel:[phone] Family History Family Member Type Diagnosis Age At Onset Father Problem (finding) Hypertension Brother Problem (finding) Hypertension Mother Problem (finding) Alive and well Problem (finding) Family history of Anxie ty Payers Payer name Insurance type Covered green party ID Authoriza tion(s) No Information Social [...] Fox [address] [place], [phone] Ordered: Referrals: Maximino Fox. Evaluate and treat [...] Date Complaint History Of Prese nt Illness alcohol1 Pt continues to drink alcohol despite active hep C. Pt had UDS done last time and no oxycodone, however, there was large amount of alcohol in his system. Pt told me he only drinks occassionally and he does not mix alcohol with xanax and pain meds. anxiety1 PT has chronic a nxiety. Pt denies any depression or any suicidal thought. Pt takes xanax PRN for anxiety. Pt denies any crying spells headache1 Pt has chronic h eaache. Pt has remoate history of head trauma. Pt has daily throbbing headache. Pt denies any new head injury. Pt denies any acute headache headache1 Pt has chronic h eadache due to encephalomalacia. Pt takes percocet for pain Pt c/o throbbing headache daily anxiety1 Pt has chronic a nxiety. Pt depression or any sucidasl thought. Pt takes xanax and doing ok Pt denies any crying spells COPD1 Pt uses symbicor t, atovent and proair Pt still uses proair multilpe times per day due to wheezing and SOB. No chest pain Pt is noncompliant with smoking cessation headache1 Pt has chronic h eadache due to history of head injury and trauma. Pt was in a head coma for mulitiple months in the past. Pt doing ok with percocet. Pt has headache daily. anxiety1 pt has chronic a nxiety. Pt denies any depression or any suicidal thought. Pt denies any crying spells. leg pain1 Pt has mild engo rged veins right lower leg and he notices some pain sometimes Pt denies any calf pain. Pt notices the engorged veins for long time but worse lately. Pt denies any chest pain or SOB. Pt denies any recent travel or bedrest ED Pt has ED. Pt de nies any testicular pain or nodule. Pt has good libido headache1 Pt has chronic h eadache. Pt takes percocet and doing ok. Pt denies any worsening pain anxiety1 Pt has chronic a nxiety. pt [...] denies any abd pain. or gERD symptoms GERD1 Pt has GERD. Pt has possible [...] denies any abd pain or GERD symptoms GERD1 Pt has GERD Pt h as not been taking omeprazole. Pt did not pick remover from pharmacy. Pt has gERD symptoms daily. without med. pt had EGD recently Anxiety1 Pt has chronic a nxiety PT denie any depression or any suicial thought. Pt denies any crying spells. headache Additional infor mation: Pt has chronic traumatic headache. Pt states that norco no longer works. Pt wants to try percocet. Pt denies any new injury. COPD Pt has COPD and he uses atrovent, symbicort and proair daily. Pt is noncompliant with pulmonary. Pt denies any acute SOB. Pt still smoking GERD1 Pt has GERD. Pt recenty had [...] de nies any testicular pain or nodule headache1 Pt has chronic h eadache Pt has hsitory of trauma Pt denies any worsening pain Pt denies any nauea, vomiting or any vision change anxiety1 Pt has chronic a nxiety Pt denies any depression or any sucidasl thought. Pt takes xanax PRN. Pt denies any crying spellls. GERD1 Pt has been havi ng severe GERD symptoms for several months. Pt has EGD scheduled for next month. Pt denies any abd pain COPD Pt has COPD. Pt still smoking Pt is using symbicort and atrovent. Pt uses proair 2-3 per day. Pt denies any acute SOB COPD1 Pt has severe bu lous COPD. Pt no longer sees pulmonary. Pt is on symbicort, atrovent and he uses proair 2-3 per week. Pt still smoking . headache1 Pt has chornic h eadache. Pt has throbbing headache daily. Pt has history of remote head trauma. Pt denies any worsening headache. Pt denies any nasuea, vomiting, vision change Anxiety1 Pt has chronic a [...] not anemic Pt currently only drinks socially anxiety1 Pt has chronic a nxiety. Pt denies any depression or any suicidal thought. Pt doing ok. Pt takes xaanx RPN. 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 Pt denies any new injury. Pt denies any change in qualtiy of headahe Pt has headache daily Anxiety1 Pt has chronic a nxiety and [...] good libido. He deneis any testciular pain Headahe Pt has chronic h eadache. Pt denies any worsening headache. Pt has history of remote head trauma COPD Pt has COPD. Pt has appointment with pulmonary next week. Pt is only using atrovent BID and symbicort BID. Pt denies any SOB now. Pt uses venotlin BID on average Pt still smoking Hep C Pt is noncomplia nt with hep C treatment. Pt told me he found a different GI but he is a family doctor?? I am not sure what he is doing. Pt does not want to go to current GI due to transportation issue Anxiety Additional infor mation: Pt has chronic anxiety. Pt denies any depression or any suicidal thought. Pt doing ok. headache Pertinent negati ves include memory loss [...] the walking test. Pt also wheezing frequently COPD Pt has COPD. Pt seen pulmonary physician and orderred some test per patient. Pt takes atrovent and venotlin and denies any worsening breathing. headache Additional infor mation: Pt has chronic headache. Pt denies any worsening headache. Anxiety Additional infor mation: PT has chronic anxiety. Pt denies any depression or any suicdial thought. elbow pain Location: elbow. Additional information: Pt c/o left elbow pain and pain radiating down to left forearm for two weeks. Pt denies any injury. Pt denies any hand numbness. COPD Pt has COPD. Pt still smoking. [...] remote head trauma. ED Pt has ED COPD COPD Pt has COPD> Pt uses atrovent. Pt uses albuterol once per day. Pt denies any SOB. pt is noncompliant with pulmonary MD Anxiety Additional infor mation: Pt has chronic anxeity. Pt denies any sucidal thought or depression. Pt takes xanax PRN. headache Additional infor mation: Pt has chronic headache. Pt denies any worsening headacahe. pt denies any worsening headache. allergy Additional infor mation: Pt has seasonal allergy. Pt c/o running nose, itchy eyes, sinus congestion for several weeks. allergy Pt has been artur irene OTC allergy meds like benadry but not working Instructions Date Instruction Additional Infor mation Prescribed [...] caloric intake Related to Dietary surveillance counseling Assessments Type Assessment Date assessment Headache assessment Anxiolytic dependence 6 assessment Alcohol dependence, uncomplicate d Mental Status Date Cognitive Assessment Orientation - [place] Pos ed to time, place, person, situation.
--- OUTSIDE RECORDS SUMMARY | 2025-01-31 02:03 | XMS_ITS | Referral Summary ---
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 Pa Gavin MD [facility] CT PROCEDURES [...] - DEVICE Final Result Performing Organization Address [facility] Co de Phone Number [facility] Department [place] [address] * POCT creatinine (01/13/2025 7:26 AM CDT) Creatinine POC 1.0 0.8 - 1.3 mg/dL Blood 01/13/2025 7:26 AM CDT 01/13/2025 7:26 AM CDT Pa Gavin MD LAB POCT ORDERABLES - DEVICE Final Result Performing Organization Address [facility] Co de Phone Number [facility] Department [place] [address] * (ABNORMAL) POC Blood Gas and Chemistries, Venous - (01/13/2025 7:25 AM CDT) [facility] pH, Tony POC 7.44(H) 7.32 - 7.43 pCO2, tony POC 44 40 - 50 mmHg [facility] pO2, tony POC 65 mmHg [facility] Na, POC 140 135 - 145 mmol/L [facility] K POC 3.8 3.3 - 4.9 mmol/L [facility] Comment: Interpretive Data Not all point of care methods assess for hemolysis. Confirm with instrument and retest K+ if not consistent with clinical signs and symptoms. Current Interpretive Data was last revised on 2023. Cl, POC 108 97 - 110 mmol/L [facility] Ionized Ca, POC 4.88 4.50 - 5.10 mg/dL [facility] Glucose, POC 143 70 - 199 mg/dL [facility] Lactate POC 1.5 0.7 - 2.0 mmol/L [facility] MetHb, Tony POC 0.2 0.0 - 1.9 % [facility] O2 Sat, Tony POC (Filomena) 94 % [facility] Base excess, POC 5.0 mmol/L [facility] Hct, POC 40.0(L) 41.4 - 51.6 % [facility] Total Hb, POC 13.2(L) 13.8 - 17.2 g/dL [facility] Blood 01/13/2025 7:25 AM CDT 01/13/2025 7:25 AM CDT us Pa Gavin MD LAB POCT ORDERABLES - DEVICE Final Result STEPHANE GAMEZ One [facility] Department [place] [address] * Thromboelastometry Panel - Heparin (01/13/2025 7:23 AM CDT) [facility] HEPTEM-CT 182 141 - 215 sec HEPTEM-A5 45 33 - 51 mm [facility] HEPTEM-A10 55 44 - 61 mm [facility] HEPTEM-A20 59 52 - 67 mm [facility] HEPTEM-MCF 58 54 - 69 mm [facility] Blood 01/13/2025 7:23 AM CDT 01/13/2025 7:30 AM CDT Pa Gavin MD LAB BLOOD ORDERABLES E dited Result - Final [facility] Department [place] [address] * (ABNORMAL) Thromboelastometry Panel - Intrinsic (01/13/2025 7:23 AM CDT) INTEM-CT 187 139 - 205 sec INTEM-A5 47 36 - 54 mm [facility] INTEM-A10 56 46 - 63 mm [facility] INTEM-A20 59 53 - 68 mm [facility] INTEM-MCF 59 55 - 70 mm [facility] INTEM-LI60 91(L) 93 - 100 % [facility] INTEM-ML 12(H) 0 - 7 % [facility] Comment: Interpretive Data Rotational Thromboelastometry ([place]OR[place]ES) Sigma [...] Function. J Clin Med. 2019Jul 18 9(5) 824. 2. Gisela O, Sariah CM, Jeffrey N, Karl EE, Karl HB, Pallavi HC, Jose FLORES, Judy Palma MD, Edgardo SS, Dakotah G, Hugo NICHOLS, Danielle ML, Praveen AV, Praveen SG, Andrew L, Kristi SimpsonZ, Jamel M, Oswald P, Pablo D, Houston MM. Viscoelastic Hemostatic Assays A Primer on Legacy and New Generation Devices. J Clin Med. 2021Aug 15 11(5) 367. 3. [place] Operating Manual. Nicholas Medellin MA. Krgrmi-[id number]-Hwewfwi 13-15. D- [id number] [facility]. Blood 01/13/2025 7:23 AM CDT 01/13/2025 7:30 AM CDT Pa Gavin MD LAB BLOOD ORDERABLES E dited Result - Final Performing Organization Address City/[facility]/ZIP Co de Phone Number [facility] [address] [place] [address] * Thromboelastometry Panel - Fibrinogen (01/13/2025 7:23 AM CDT) FIBTEM-A5 13 5 - 16 mm FIBTEM-A10 14 6 - 17 mm [facility] FIBTEM-A20 15 6 - 18 mm [facility] FIBTEM-MCF 16 9 - 19 mm [facility] Blood 01/13/2025 7:23 AM CDT 01/13/2025 7:30 AM CDT Pa Gavin MD LAB BLOOD ORDERABLES E dited Result - Final [facility] [address] [place] [address] * (ABNORMAL) Thromboelastometry Panel - Extrinsic (01/13/2025 7:23 AM CDT) EXTEM-CT 69 51 - 73 sec EXTEM-A5 48 33 - 52 mm [facility] EXTEM-A10 58 45 - 62 mm [facility] EXTEM-A20 62 54 - 69 mm [facility] EXTEM-MCF 62 57 - 72 mm [facility] EXTEM-LI60 91(L) 94 - 100 % [facility] EXTEM-ML 13(H) 0 - 6 % [facility] Blood 01/13/2025 7:23 AM CDT 01/13/2025 7:30 AM CDT us Pa Gavin MD LAB BLOOD ORDERABLES E dited Result - Final [facility] Department [place] [address] * (ABNORMAL) Differential, auto (01/13/2025 7:23 AM CDT) Neutrophil abs 4.56 1.50 - 6.50 K/cumm Imm gran abs 0.02 0.00 - 0.10 K/cumm [facility] Lymphocyte abs 1.85 0.80 - 3.30 K/cumm [facility] Monocyte abs 1.11(H) 0.20 - 0.80 K/cumm [facility] Eosinophil abs 0.14 0.00 - 0.50 K/cumm [facility] Basophil abs 0.03 0.00 - 0.10 K/cumm [facility] Neutrophil pct 59.1 % [facility] Comment: Interpretive Data Percent cell count reference ranges are not reported, since discordance with absolute values may lead to misinterpretation of CBC data. Current Interpretive Data was last revised on 2017. Imm gran pct 0.3 % [facility] Comment: Interpretive Data Percent cell count reference ranges are not reported, since discordance with absolute values may lead to misinterpretation of CBC data. Current Interpretive Data was last revised on 2017. Lymphocyte pct 24.0 % [facility] Comment: Interpretive Data Percent cell count reference ranges are not reported, since discordance with absolute values may lead to misinterpretation of CBC data. Current Interpretive Data was last revised on 2017. Monocyte pct 14.4 % [facility] Comment: Interpretive Data Percent cell count reference ranges are not reported, since discordance with absolute values may lead to misinterpretation of CBC data. Current Interpretive Data was last revised on 2017. Eosinophil pct 1.8 % [facility] Comment: Interpretive Data Percent cell count reference ranges are not reported, since discordance with absolute values may lead to misinterpretation of CBC data. Current Interpretive Data was last revised on 2017. Basophil pct 0.4 % [facility] Comment: Interpretive Data Percent cell count reference ranges are not reported, since discordance with absolute values may lead to misinterpretation of CBC data. Current Interpretive Data was last revised on 2017. Blood 01/13/2025 7:23 AM CDT 01/13/2025 7:43 AM CDT us Pa Gavin MD LAB BLOOD ORDERABLES F inal Result [facility] Department [place] [address] * (ABNORMAL) CBC with auto differential (01/13/2025 7:23 AM CDT) WBC 7.71 3.80 - 9.90 K/cumm Hgb 12.9(L) 13.0 - 17.5 g/dL [facility] Hct 38.6(L) 38.9 - 50.3 % [facility] Plt 265 150 - 400 K/cumm [facility] MPV 9.8 9.1 - 12.3 fL [facility] RBC 4.31 4.30 - 5.80 M/cumm [facility] MCV 89.6 81.3 - 96.4 fL [facility] MCH 29.9 27.1 - 33.3 pg [facility] MCHC 33.4 32.3 - 35.7 g/dL [facility] RDW CV 15.5(H) 11.1 - 14.9 % [facility] RDW SD 50.7(H) 35.7 - 48.1 fL [facility] NRBC abs 0.00 0.00 - 0.01 K/cumm [facility] Blood 01/13/2025 7:23 AM CDT 01/13/2025 7:43 AM CDT Pa Gavin MD LAB BLOOD ORDERABLES F inal Result Performing Organization Address [facility] de Phone Number [facility] [address] [place] [address] * aPTT (01/13/2025 7:23 AM CDT) aPTT [...] ORDERABLES F inal Result Performing Organization Address [facility] de Phone Number [facility] [address] [place] [address] * (ABNORMAL) Protime-INR (01/13/2025 7:23 AM CDT) PT 13.4(H) 9.7 - 13.0 sec INR 1.24(H) 0.90 - 1.20 [facility] Comment: Interpretive data Oral anticoagulant therapeutic ranges: Venous thromboembolism prophylaxis or treatment: 2.0-3.0 CARDIOLOGY Standard range: 2.0-3.0 High-intensity range: 2.5-3.5 Refer to indication-specific guidelines for appropriate target ranges for prosthetic heart valve replacement. Current interpretive data was last revised on 2019. Blood 01/13/2025 7:23 AM CDT 01/13/2025 7:32 AM CDT Pa Gavin MD LAB BLOOD ORDERABLES F inal Result Performing Organization Address [facility] [place] [address] * Type and screen (01/13/2025 7:23 AM CDT) ABO Rh A Positive Cesario, indirect Negative [facility] Blood 01/13/2025 7:23 AM CDT 01/13/2025 7:34 AM CDT Narrative [facility] - 01/13/2025 8:37 AM CDT Has the patient had Daratumumab or Isatuximab in the past 6 months?->Unknown Pa Gavin MD LAB BLOOD BANK TEST OR DERABLES Final Result Performing Organization Address [facility] de Phone Number [facility] [place] [address] * Ethanol (01/13/2025 7:23 AM CDT) Ethanol <10 <=10 mg/dL Comment: Interpretive Data Legal limit of intoxication > or = 80 mg/dL Levels > or = 400 mg/dL are potentially TOXIC. Current interpretive data was last revised on 2018. Blood 01/13/2025 7:23 AM CDT 01/13/2025 7:43 AM CDT Pa Gavin MD LAB BLOOD ORDERABLES F inal Result Performing Organization Address [facility] de Phone Number [facility] [address] [place] [address] from Last 3 Months [facility] ID[facility] IDPA Advance Directives For more information, please contact: [phone] * Full Code (Latest Code Status on File) Date Activated Date Inactivated Comments 08/28/2020 5:21 AM 09/07/2020 3:01 PM * Full Code Date Activated Date Inactivated Comments 10/04/2019 10:51 AM 10/05/2019 10:11 PM Care Teams Linesperson Relationship Specialty Start Date End Date No, Physician PCP - General 10/04/19
--- NOTE | 2025-01-31 02:45 | ED_ITS ---
HPI - Abdominal Pain General Chief Complaint: Abdominal Pain Stated Complaint: abd pain Time Seen by Provider: 01/31/25 01:48 Source: patient History of Present Illness HPI narrative: Patient presents with report of generalized abdominal pain across the entire abdomen but also complaining of a hernia which he states he believes burst.He has been nauseated but without vomiting. Last bowel movement was today and he denies any constipation, diarrhea, bloody stools. He continues to pass flatus. Subjective fevers. Last oral intake was 7:00 p.m.. Not on anticoagulation. Denies any previous abdominal surgery. States this has never happened before. States he was diaphoretic when going to the bathroom. Pain became worse after eating. Also worse when rides bicycle. States he feels like he was kicked in the nuts. Related Data Allergies Allergy/AdvReac Type Severity Reaction Status Date / Time No Known Allergies Allergy Unknown Unverified 01/31/25 00:18 [facility] Past Medical History Medical History History of CVA (cerebrovascular accident) Hx of fracture of face bones Chronic bullous emphysema Traumatic brain injury In 2002. Brain CT in 2014 showing chronic encephalomalacia involving the left frontal and bilateral temporal lobes COPD (chronic obstructive pulmonary disease) PFTs in 2015 showing moderate obstructive disease. Surgical History Surgical History History of tracheostomy H/O brain surgery plates and screws from traumatic injury Family History Family History Father Hypertension Sibling Hypertension Grandparent Diabetes mellitus Grandparent Acute myocardial infarction Other Family history of mental disorder Social History Social History (Updated 08/27/20 @ 18:56 by Mason Kim MD) Social History: Patient smokes half pack a day has smoked for 30+ years. Minimal alcohol use. He admits to marijuana use but no other drug use. 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 Smoking packs per day: 0.5 Smoking cigarettes per day: 10.0 Years smoked: 30 Smoking pack-years: 15.00 Smoking status: Current every day smoker Alcohol intake: current Substance use: current Substance use type: marijuana Last use: 08/21 Gender identity (if verbalized by the patient): Male Spiritual care concerns: No Exam 2 Narrative: GENERAL: Well-appearing, well-nourished, and in no acute distress. HEAD: Normocephalic, atraumatic. EYES: Non injected, non icteric ENT: Nares clear, no rhinorrhea or epistaxis. Gross auditory acuity intact. NECK: Supple. No meningismus. CHEST: Speaking in full sentences. No respiratory distress. HEART: Tachycardic rate and rhythm. . ABDOMEN: Soft, nondistended. No tenderness to palpation throughout. No rigidity or guarding. Not peritoneal. : Normal external male genitalia. Moderate sized R inguinal hernia but without overlying skin changes. Otherwise no scrotal masses or tenderness to palpation. No penile discharge. Normal testicles without prominent asymmetry/horizontal lie. No tenderness to palpation. EXTREMITIES: Normal range of motion. No lower extremity edema. SKIN: Warm, dry, no rash. NEURO: No focal deficits. Alert and oriented. Answering questions. Following commands. Patient's speech is at times difficult to understand but more due to accent and phil. PSYCH: Congruent mood and affect. Course Vital Signs Vital signs: Vital Signs Temperature 98.6 F 01/31/25 00:15 Pulse Rate 106 H 01/31/25 00:15 Respiratory Rate 18 01/31/25 00:15 Blood Pressure 162/95 H 01/31/25 00:15 Pulse Oximetry 100 01/31/25 00:15 Oxygen Delivery Room Air 01/31/25 00:15 Temperature 97.9 F 01/31/25 08:16 Pulse Rate 72 01/31/25 08:16 Respiratory Rate 17 01/31/25 08:16 Blood Pressure 162/80 H 01/31/25 08:16 Pulse Oximetry 97 01/31/25 08:16 Oxygen Delivery Room Air 01/31/25 00:15 MDM - Abdominal Pain MDM Narrative Medical decision making narrative: 54-year-old male presents with In the emergency department he is afebrile with vital signs notable for tachycardia and hypertension. Leukocytosis. Patient is given analgesic medication. He is resting comfortably. Stat Rad CT interpretation with possible inflammatory changes/strangulation although there are no overlying skin changes of the right inguinal hernia. No mention of the hernia by [facility]. Patient given another dose of analgesic medication and ice applied. After this, with patient in Trendelenburg position, constant firm pressure is applied and the hernia is easily reducible. Patient remains in this position and RN to apply scrotal elevation / jock strap. Patient advised follow-up with general surgeon in outpatient setting if desires consultation for consideration of elective surgical repair. Given instructions on warning signs of strangulation/incarceration and that these are indications for return to ED. Verifies understanding. He also does not currently have a primary care physician so given referral contact information for 1. Patient given prescriptions for dznd-inj-woxsscf analgesics medications as well as the omeprazole for the internal hernia seen on imaging. Otherwise stable for DC. Differential Diagnosis Differential diagnosis: Likely abdominal pain, acute appendicitis, constipation, diverticulitis, pancreatitis, small bowel obstruction and other (Reducible hernia/strangulated hernia/incarcerated hernia; considered torsion) Lab Data Attestation: I reviewed the patient's lab results. 01/31/25 01:42 01/31/25 01:42 Labs: Lab Results 01/31/25 01/31/25 Range/Units 01:42 03:29 WBC 12.5 H (4.5-10.0) K/mm3 RBC 4.60 (4.6-6.20) M/mm3 Hgb 13.5 L (14.0-18.0) g/dL Hct 42.6 (42.0-52.0) % MCV 92.6 (80-100) fl MCH 29.3 (26-34) pg MCHC 31.7 L (32-36) g/dl RDW 14.9 H (11.5-14.5) % Plt Count 286 (150-375) k/mm3 MPV 9.1 (7.4-10.4) fl Immature Gran % (Auto) 0.3 (0-0.5) % Neut % (Auto) 87.0 H (45.5-73.1) % Lymph % (Auto) 5.6 L (18.3-44.2) % Clinton % (Auto) 6.4 (2.6-8.5) % Eos % (Auto) 0.4 (0-4.4) % Baso % (Auto) 0.3 (0.2-1.2) % Lymph # (Auto) 0.70 L (0.9-3.2) K/mm3 Clinton # (Auto) 0.8 H (0.1-0.6) K/mm3 Eos # (Auto) 0.1 (0-0.3) K/mm3 Baso # (Auto) 0.0 (0.0-0.1) K/mm3 Abs Immat Gran (auto) 0.04 H (0.00-0.031) K/mm3 Absolute Neuts (auto) 10.8 H (1.3-6.7) K/mm3 Absolute Nucleated RBC 0.000 (0.0-0.012) K/mm3 Nucleated RBC % 0.0 (0.0-0.2) % Sodium 133 L (137-145) mmol/L Potassium 4.4 (3.4-5.0) mmol/L Chloride 101 (98-107) mmol/L Carbon Dioxide 27 (22-30) mmol/L Anion Gap 5 (4-12) mmol/L BUN 17 (9-20) mg/dL Creatinine 0.92 (0.7-1.3) mg/dL Estim Creat Clear Calc 82 ml/min Estimated GFR > 60 (59 - ) Glucose 118 H (65-110) mg/dL Lactic Acid 1.0 (0.7-2.0) mmol/L Calcium 9.1 (8.4-10.2) mg/dL Total Bilirubin 0.3 (0.2-1.3) mg/dL AST 31 (17-59) U/L ALT 17 (6-50) U/L Alkaline Phosphatase 127 H (38-126) U/L Total Protein 7.7 (6.3-8.2) g/dL Albumin 3.8 (3.5-5.1) g/dL Lipase 63 (23-300) U/L Urine Color Yellow (Yellow) Urine Appearance Clear (Clear) Urine pH 7.5 (5.0-9.0) Ur Specific Menan 1.018 (1.001-1.035) Urine Protein Negative (Negative) mg/dL Urine Glucose (UA) Negative (Negative) mg/dL Urine Ketones Trace H (Negative) mg/dL Ur Blood (Man) Negative (Negative) Urine Nitrate Negative (Negative) Urine Bilirubin Negative (Negative) Urine Urobilinogen 1.0 (<2.0) mg/dL Leukocyte Esterase Rfl Negative (Negative) APARNA/UL Imaging Data Radiologist's impression: ITS Impressions Abdomen/Pelvis CT 07/26/25 06:58 IMPRESSION: Mural thickening of the distal esophagus extending into the proximal stomach with a small hiatal hernia. Nonobstructing bilateral renal calculi. CT Abd Pelvis Stat Rad: Fat stranding within a small right-sided inguinal hernia potentially reflecting strangulation. Mild compression deformity of L1 of uncertain age. Incidental findings: Emphysema within the lung bases. Nephrolithiasis. Thickening of the distal esophagus which may reflect esophagitis. Diverticulosis coli. Discharge Plan Discharge Clinical Impression: Leukocytosis, Abdominal pain, Compression deformity of vertebra, Emphysema lung, Diverticulosis of colon, Hiatal hernia, Reducible right inguinal hernia Patient Disposition: Home Condition: Stable Instructions: Antibiotic Form, Hiatal Hernia (ED), Diverticulosis (DC), Inguinal Hernia (ED), Emphysema (DC), Abdominal Pain (ED) Additional Instructions: Acetaminophen/Tylenol (maximum 4000 mg per day) is safe to take with NSAIDs (ibuprofen/Motrin) for pain relief. You also had evidence of a hiatal hernia. The prescribed medication may help with this. Follow-up with your primary care physician. Because you do not have 1 the name of the doctors listed below. You can discuss elective hernia repair with the general surgeon listed below. Call their office if you would like to schedule an appointment. Return to the emergency department any new or worsening symptoms such as overlying skin changes at the hernia with inability to reduce the hernia, pain not responding to medications, no longer farting/passing gas, etc. Patient Language: Irish Prescriptions: New ibuprofen 600 mg tablet 600 mg PO TID PRN (Reason: pain) Qty: 30 0RF acetaminophen 500 mg capsule 1,000 mg PO Q6H PRN (Reason: pain) Qty: 30 0RF omeprazole 20 mg tablet,delayed release (DR/EC) 20 mg PO DAILY Qty: 14 0RF Follow-up/Referrals: PHYSICIAN,LEAD APPLICATIONS DEVELOPER [Primary Care Provider] - Isra Love MD [Physician] - (family practice; primary care physician) Roderick Fuentes DO [Physician] - (general surgery) Stand Alone Forms: Work/School Release IP Time of Disposition: 08:39
[2025-01-31] MEDS: SODIUM CHLORIDE 0.9% IV 1,000 ML 999 ML IV CONT (03:22)
[2025-01-31] MEDS: ONDANSETRON INJ 4 MG/2 ML VIAL IV PUSH (03:23)
[2025-01-31] MEDS: MORPHINE SULFATE (*CRX) 4 MG/ML INJ IV PUSH (03:23)
[2025-01-31 04:08] LABS: Add Urine Microscopic? NO; Appearance Urine Clear (Clear); Glucose Urine UA Negative (Negative); Leukocyte Esterase Ur Negative LEU/UL (Negative); Nitrate Urine Negative (Negative); Specific Grav Ur 1.018 (1.001-1.035)
[2025-01-31] MEDS: HYDROmorphone HCL INJ (*CRX) 2 MG/ML VIAL 0.5 MG IV PUSH (07:52)
--- NOTE | 2025-01-31 07:52 | PC.NURSE ---
patient used urinal. pain medications administered. ice pace placed on right groin
[2025-01-31] MEDS: PANTOPRAZOLE 40 MG TABLET PO (08:55)
== END 2025-01-31 09:04 | disposition home or self-care (01) ==
PROVIDERS: Physician Assistant; Emergency Provider Student in an Organized Health Care Education/Training Program
DX: K40.90 Unilateral inguinal hernia, without obstruction or gangrene, not specified as recurrent (principal); K44.9 Diaphragmatic hernia without obstruction or gangrene; K57.30 Diverticulosis of large intestine without perforation or abscess without bleeding; J43.9 Emphysema, unspecified; M48.50XA Collapsed vertebra, not elsewhere classified, site unspecified, initial encounter for fracture; F17.210 Nicotine dependence, cigarettes, uncomplicated; F12.90 Cannabis use, unspecified, uncomplicated
CPT/HCPCS: 36415; 74177; 80053; 81003; 83605; 83690; 85025; 96361; 96374; 96375; 99284; A9270; C1751; J1171; J2270; J2405; J7030; Q9967

== ENCOUNTER 2025-04-21 14:50 | Outpatient (CLI) | payer MEDICARE, SELFPAY ==
--- NOTE | 2025-04-21 15:09 | ECG_ITS ---
Test Date: 2025-04-21 15:18:26 Measurements Intervals [place] Rate: 74 P: 54 NH: 129 QRS: 50 QRSD: 90 T: 48 QT: 360 QTc: 400 Interpretive Statements SINUS RHYTHM BASELINE ARTIFACT- I, II, AVR, AVL, AVF NORMAL ECG No previous ECG available for comparison Electronically Signed On 04-21-2025 16:53:28 CDT by Stas Adams D.O.
--- OUTSIDE RECORDS SUMMARY | 2025-04-21 16:44 | XMS_ITS | Clinical Summary ---
Author Organization [facility] Address [address] [address] Phone Care Team Providers Care Insurance Executive Name Role Phone Provider, None Primary Care Provider Unavailabl e Allergies No known active allergies Medications albuterol (PROAIR HFA) 108 (90 Base) MCG/ACT Aerosol Solution take 2 Puffs by inhalation 4 times daily. 8.5 g 4 8 Active Fluticasone-Salm eterol (ADVAIR HFA) 115-21 MCG/ACT AerosolIndicatio ns:Chronic bronchitis, unspecified chronic bronchitis type take 2 Puffs by inhalation every 12 hours. 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 Gender Identity Not on file Sexual Orientation [...] of 3 - 19+ 3-dose series) 1988 Medicare Initial AWV [id number] 01/07/2012 Cologuard 2014 Colonoscopy 2014 Colorectal Cancer Screening 2014 Immunochemical Fecal Occult Blood 2014 Pneumococcal Immunization (5 0+ years) (2 of 2 - PPSV23, PCV20, or PCV21) 06/25/2015 04/30/2015 Zoster Immunization (1 of 2) 10/03/2019 Influenza Immunization (#1) 2025 11/2 07/2016, 04/30/2015 SARS-COV-2 Immunization (2 - season) 2025 03/03/2021 Td Immunization Every 10 Yea rs (Adults [...] topic Insurance MEDICARE [place]ICAID [place] Care Teams Insurance Executive Relationship Specialty Start Date End Date Provider, None [place] PCP - General 12/23/20
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
== END 2025-04-21 14:51 | disposition home or self-care (01) ==
PROVIDERS: Visit Provider Surgery
DX: Z01.818 Encounter for other preprocedural examination (principal); K40.90 Unilateral inguinal hernia, without obstruction or gangrene, not specified as recurrent; Z72.0 Tobacco use
CPT/HCPCS: 36415; 86850; 86900; 86901; 93005

== ENCOUNTER 2025-04-22 01:24 | Day surgery (SDC) | payer MEDICARE, SELFPAY ==
[2025-04-16 11:44] VITALS: BMI 28.0
--- NOTE | 2025-04-16 12:00 | PC.NURSE ---
[facility] has started construction of its new state of the art ER which will open Spring 2026. With this, we anticipate parking may be a challenge for some our surgical patients and families. Parking spaces are limited but are available for all Surgical, obstetrics, and ER patients sharing this lot. If you arrive and find you are having a hard time finding a parking space, please note that we understand the challenges, please drive around the hospital and park near Hospital Entrance 1. When you enter this entrance, you can ask a volunteer to direct or take you back to the surgical waiting area to check in. We appreciate everyone?s understanding of these expected challenges while we build for your future. Report to the Outpatient Waiting Room, entrance under the green pavilion located off [address], at time _0730_ on date _[phone]_. Planned Procedure Time: _0930_.? Time changes happen often and if your time is changed the preop area will call you the afternoon before. - You and your visitor will be asked to self-screen and do not enter if you have any COVID symptoms. Please call surgeon if you need to reschedule. - A mask is optional within the hospital at this time. Patients may have clear liquids (water, carbonated beverages, clear teas, apple juice) until 3 hours prior to surgery with a maximum of 20 ounces. - No food from midnight until time of surgery and no smoking, or chewing tobacco (or any form of nicotine). No chewing gum, candy or mints. Take only the following medications with a SIP of water on the morning of surgery: _Acetaminophen if needed.__ DO NOT STOP ANY OF YOUR OTHER PRESCRIPTION MEDICATIONS PRIOR TO SURGERY EXCEPT THE FOLLOWING Hold all vitamins and supplements for 3 days per anesthesiologist. Medications to discontinue per physician ____Call Dr Fuentes's office and ask If OK to take Ibuprofen.__ Date to take last dose Please no make-up, nail yoruba, hairspray, perfume, deodorant, or body powder the day of surgery.? No jewelry (including any body piercings) or valuables the day of surgery, leave them at home.? Please take a shower or bath the night before, or the morning of, surgery with an antibacterial soap.? Wear comfortable, loose fitting clothing.? - Jewelry must be removed prior to entering the operating room.? Rings and piercings that are not removed may be cut off. - The hospital will not accept responsibility for valuables.? - Please leave all valuables, including medications, at home the day of surgery. If you are going home after surgery, a licensed local company intermodal truck driver must drive you home.? - NO public transportation without another adult if you receive anesthesia. - We recommend that an adult stay with you for 24 hours following discharge. - We also recommend that you do not drive, make important decision, drink alcoholic beverages, or take any drugs that were not prescribed by your health care provider for at least 24 hours after your discharge time. Follow any additional instructions given to you from your surgeon. Telephone instructions given to _Ra___and asked if any additional questions and then verbalized understanding. Patient advised to call surgeon office or pre surgery nurse liaison [phone] if any additional questions.
[2025-04-22] VITALS (12 sets, daily range): BP systolic 141–171; BP diastolic 67–114; PULSE 65–78; RESP 12–18; TEMP 36.3–36.6; O2SAT 96–100; BMI 27.0
[2025-04-22] MEDS: LACTATED RINGERS 1,000 ML 30 ML IV CONT ×2 (10:50→13:06)
[2025-04-22] MEDS: KETOROLAC 15 MG/ML VIAL (*BKC) IV PUSH (11:05)
[2025-04-22] MEDS: ACETAMINOPHEN 500 MG TABLET 1000 MG PO (11:05)
--- NOTE | 2025-04-22 11:45 | WPDANESEPPF ---
Anes - Initial Pre Proc Eval Procedure: Operation Date: 04/22/25 09:30 Proposed Procedures p Laparoscopic Right Inguinal Hernia Repair with Mesh, Da Linda Assisted - Roderick Fuentes DO Date/Time: 04/22/25 11:45 Surgeon: Roderick Fuentes DO Pre Op Diagnosis: Rt Ing Hernia Patient Data Age: 54 Gender: M Height: 1.78 m Weight: 85.4 kg Last Vital Signs Temp 36.6 C 04/22/25 10:35 Pulse 76 04/22/25 10:35 Resp 18 04/22/25 10:35 BP 153/86 H 04/22/25 10:35 Pulse Ox 100 04/22/25 10:35 O2 Del Method Room Air 04/22/25 10:35 Allergies Allergy/AdvReac Type Severity Reaction Status Date / Time No Known Allergies Allergy Unknown Verified 04/22/25 11:16 Home Medications ?Medication ?Instructions ?Recorded ?Confirmed ?Type acetaminophen 500 mg capsule 1,000 mg (2 x 500 mg) PO Q6H PRN 01/31/25 04/16/25 Rx pain #30 caps ibuprofen 600 mg tablet 600 mg PO TID PRN pain #30 tabs 01/31/25 04/16/25 Rx omeprazole 20 mg tablet,delayed 20 mg PO DAILY #14 tabs 01/31/25 04/16/25 Rx release Patient hx anesthesia problems: none Family hx anesthesia problems: none Results Review: All pre-operative results and documents have been reviewed as part of the pre-operative evaluation. [facility] Past Medical History Medical History History of CVA (cerebrovascular accident) Hx of fracture of face bones Chronic bullous emphysema Traumatic brain injury In 2003. Brain CT in 2015 showing chronic encephalomalacia involving the left frontal and bilateral temporal lobes COPD (chronic obstructive pulmonary disease) PFTs in 2015 showing moderate obstructive disease. Surgical History Surgical History History of tracheostomy H/O brain surgery plates and screws from traumatic injury Family History Family History Father Hypertension Sibling Hypertension Grandparent Diabetes mellitus Grandparent Acute myocardial infarction Other Family history of mental disorder Social History Social History Social History: Patient smokes half pack a day has smoked for 30+ years. Minimal alcohol use. He admits to marijuana use but no other drug use. 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 Smoking packs per day: 0.5 Smoking cigarettes per day: 10.0 Years smoked: 40 Smoking pack-years: 20.00 Smoking status: Current every day smoker Tobacco type: cigarettes Alcohol intake: current Substance use: current Substance use type: marijuana Last use: 08/21 Living arrangements: with family Gender identity (if verbalized by the patient): Male Spiritual care concerns: No Anes - Eval Final PreProcedure Day of Procedure 04/22/25 11:45 Patient weight: overweight Heart: regular rate and rhythm Lungs: decreased breath sounds Airway: Mallampati scale class II Neurological: alert and oriented Last oral intake: >/= 8 hours ASA classification: III Emergent: no Anesthetic plan: proceed Anesthesia type and monitoring: general ETT and standard monitoring Results Review: All pre-operative results and documents have been reviewed as part of the pre-operative evaluation. Informed Consent: The patient's anesthetic plan and its attendant risks and benefits were discussed with the patient/family/POA. Questions were solicited and answers provided to the satisfaction of the patient/family/POA.
--- NOTE | 2025-04-22 11:46 | WPDHPUPDATE1 ---
History and Physical Update Update Date/Time: 04/22/25 11:46 History and Physical has been reviewed, including an updated exam of the patient. There are NO changes in the patient's condition. Risks, benefits, and alternatives have been discussed and questions answered. Patient agrees to proceed with procedure.
[2025-04-22] MEDS: ceFAZolin 2 GM in SODIUM CHLORIDE 0.9% IV 50 ML 100 ML IVPB (11:55)
[2025-04-22] MEDS: BUPIVACAINE/EPINEPHRINE 0.5% 50 ML VIAL 30 ML INFILTRATE (12:27)
--- NOTE | 2025-04-22 13:00 | P.OP_ITS ---
Procedure Note - Detailed Date of Procedure 04/22/25 Pre-op Diagnosis Right inguinal hernia Post-op Diagnosis Same (Direct right inguinal hernia) Procedure Performed Laparoscopic right inguinal hernia repair with mesh, da Linda assisted Surgeon Roderick Fuentes, Anesthesia General and Local (0.5% bupivacaine with epinephrine) Indications This is a 54-year-old man who presented with a large right inguinal hernia. He had been experiencing a bulge that was causing discomfort. He went to the emergency department and was found to have a large hernia that was able to be reduced at the bedside. CT showed evidence of a right inguinal hernia containing fat. He then followed up as an outpatient to discuss further treatment options. Discussions were made with the patient about treatment options and decision was made to proceed with robotic assisted laparoscopic right inguinal hernia repair with mesh. Findings Robotic assisted laparoscopic right inguinal hernia repair with mesh was performed. The patient was found to have a large direct right inguinal hernia extending all the way down into the scrotum. The hernia defect itself was only about 2 cm but the hernia sac extended deep into the scrotum. A robotic transabdominal preperitoneal approach was utilized for repair. Once a wide enough preperitoneal pocket was created and the hernia sac was reduced, I then placed a large right 3DMax mid mesh overlying the entire right myopectineal orifice. No specimens were obtained for pathology. Description of Procedure Procedure as well as risks, benefits, and alternatives were discussed with the patient. Written consent was obtained and placed in chart prior to procedure. Patient was brought back to surgical suite. He was placed supine on operating table. Time-out was done to confirm patient and procedure. He was then intubated by Anesthesia Department. His abdomen was prepped and draped in sterile fashion using chlorhexidine prep. 0.5% bupivacaine with epinephrine was infiltrated at each location for incision. An 8 mm incision was made in the left lateral abdomen, and a 5 mm Optiview trocar was advanced through the abdominal layers under direct visualization. Once inside the abdominal cavity, carbon dioxide insufflation was used to create a pneumoperitoneum. A camera was inserted and the abdominal cavity was inspected. The patient was placed in slight Trendelenburg position. An 8 millimeter incision was made on the right lateral abdomen and an 8 millimeter trocar was inserted under direct visualization. Another 8 millimeter incision was made just superior to the umb ilicus and an 8 millimeter trocar was inserted under direct visualization. The 5 mm port was then removed and this was replaced with another 8 mm robotic port. The robotic arms were brought up to the patient's bedside and secured to the ports. The camera and instruments were inserted. I then moved over to the robotic console and took control of the camera and instruments. After careful inspection of the abdominal cavity, I began scoring the peritoneum along the right lower quadrant using scissors with electrocautery. The preperitoneal plane was entered and this was carefully dissected caudally along the inferior epigastric vessels. Careful dissection with scissors with electrocautery and blunt dissection was used to continue this dissection. I dissected far enough laterally to allow for mesh placement, and also dissected medially to identify the pubic arch and Piero's ligament. The hernia sac was identified and carefully dissected posteriorly. The cord contents were also identified and the peritoneum was carefully dissected far enough posteriorly to allow for mesh placement. Once an adequate pocket was created, I then placed the mesh within the preperitoneal pocket and carefully unfolded it. The mesh was centered on the hernia defect with adequate overlap circumferentially. The inferior edge of the mesh was inspected to ensure that it was far enough away from the peritoneal edge. The mesh appeared in proper position overlying the entire myopectineal orifice. The mesh was secured using 3-0 Vicryl simple interrupted sutures in Piero's ligament, the superior medial edge, and superior lateral edge of the mesh. The peritoneum was then closed over the mesh using a 3-0 V-lock running absorbable suture. The robotic instruments were removed. The robotic arms were disengaged from the ports and moved away from the bedside. The patient was flattened out in bed, the ports were removed under direct visualization, and the pneumoperitoneum was released. The skin of the incisions was approximated using 4-0 Monocryl subcuticular suture, and Exofin glue was applied on top. The patient was awakened from anesthesia, extubated, and transferred to recovery. Implants Large right 3DMax mid mesh Estimated Blood Loss 5 Complications No immediate complications Condition Stable Disposition Same day [facility] Billing Surgery - Charge Forward: Surgery Billing
== END 2025-04-22 16:25 | disposition home or self-care (01) ==
PROVIDERS: Visit Provider Surgery
PROC: 8E0Y4CZ Robotic Assisted Procedure of Lower Extremity, Percutaneous Endoscopic Approach (ICD-10-PCS; CPT 49650; principal; 2025-04-22 09:30)
DX: K40.90 Unilateral inguinal hernia, without obstruction or gangrene, not specified as recurrent (principal); J43.9 Emphysema, unspecified; F17.210 Nicotine dependence, cigarettes, uncomplicated; F12.90 Cannabis use, unspecified, uncomplicated; Z79.1 Long term (current) use of non-steroidal anti-inflammatories (NSAID); Z98.890 Other specified postprocedural states; Z93.0 Tracheostomy status; Z86.79 Personal history of other diseases of the circulatory system; Z82.49 Family history of ischemic heart disease and other diseases of the circulatory system
CPT/HCPCS: 49650; S2900; J0690; A9270; C1781; J0360; J1100; J1171; J1885; J2250; J2405; J2704; J3010; J7120